=== PATIENT | female | born 1965 | race Caucasian/White ===

== ENCOUNTER → 2018-05-30 | Outpatient (CLI) | payer MEDICARE, MEDICAID ==
--- NOTE | 2018-05-30 13:32 | Diagnostic Imaging Report ---
INDICATION: Evaluate for TB. COMPARISON: No prior studies are available for comparison. TIME OF EXAMINATION: 1:40 PM. FINDINGS: A single view of the chest demonstrates the heart size to be normal. The lungs are clear. There are no parenchymal findings to suggest tuberculosis. The pulmonary vascularity is unremarkable. No effusion or pneumothorax is seen. IMPRESSION: No abnormality is identified. Dictated by: Dictated on workstation # [id number]
[2018-05-31 07:13] LABS: HEPATITIS C ANTIBODY C Non-Reactive (Non-Reactive)
== END ==
LOC: RAD 12:23
PROVIDERS: ATTEND Internal Medicine Nephrology
DX: N18.5 Chronic kidney disease, stage 5 (principal); D64.9 Anemia, unspecified; E20.9 Hypoparathyroidism, unspecified; E83.51 Hypocalcemia; E61.1 Iron deficiency; E55.9 Vitamin D deficiency, unspecified; E87.6 Hypokalemia; R60.0 Localized edema
CPT/HCPCS: 36415; 71045; 80074

== ENCOUNTER 2018-08-28 18:51 | Emergency (ER) | payer MEDICARE, MEDICAID ==
[~2018-08-28] VITALS: Ht 165.1 cm; Wt 123.8 kg
--- NOTE | 2018-08-28 20:04 | ED Integumentary General ---
General Chief Complaint: Skin/Wound Problems Stated Complaint: INFECTION ABOVE EAR ON LT SIDE Source: patient, family (Brother) History of Present Illness Date Seen by Provider: Aug 28, 2018 Time Seen by Provider: 20:04 Initial Comments 53-year-old female presenting with pain, redness and swelling to her left face and ear. This has rapidly progressed over the weekend. She does have a history of MRSA in the past. She hasn't tried taking at the area in the day they come to a head needed to be drained so she tried squeezing on it. She had only gotten blood from this area over the weekend. It has gotten much more red and swollen this evening. She also was having some subjective fever and chills at home. On arrival to the emergency Department her temperature was 100.8 F. she has dialysis on Wednesday was a Wednesday. On Wednesday she had dialysis for the less than 4 hours. She has gotten a large amount of redness and swelling that again has rapidly progressed over the left side of her face and here since Wednesday evening. She denies having any rash in this area but has had dry skin that she picks at sometimes. Timing/Duration: getting worse Severity: moderate Location: face Possible Cause: no cause identified Associated Symptoms: No blisters, No change in skin texture; edema, fever, flushing, malaise; No rash, No sore throat; swelling/mass/lumps Allergies and Home Medications Allergies Coded Allergies: Sulfa (Sulfonamide Antibiotics) (Verified Allergy, Unknown, 08/28/18) vancomycin (Verified Allergy, Unknown, 08/28/18) Patient Home Medication List Home Medication List Reviewed: Yes Review of Systems Review of Systems Constitutional: chills, fever (subjective over the weekend), malaise EENTM: ear pain (left side), other (swelling to her face on the left side) Respiratory: no symptoms reported Cardiovascular: no symptoms reported Gastrointestinal: no symptoms reported Genitourinary: no symptoms reported Musculoskeletal: no symptoms reported Skin: see HPI Past Ftgqmkq-Tcbgbg-Wpslfv Hx Past Med/Social Hx: Reviewed Nursing Past Med/Soc Hx Patient Social History Recent Foreign Travel: No (N) Contact w/Someone Who Travel: No (N) Past Medical History Arteriovenous Shunt, Dialysis Cardiac: No Neurological: No Renal Failure, Dialysis Physical Exam Vital Signs Vital Signs - First Documented 08/28/18 19:18 Temp 100.8 Pulse 92 Resp 18 B/P (MAP) 146/95 (112) Pulse Ox 100 O2 Delivery Room Air Capillary Refill : General Appearance: no apparent distress, obese HEENT: PERRL/EOMI, pharynx normal, other (erythema and swelling to left side of face with pain and tenderness to palpation. No fluctuance or drainage. Scab just above her ear without drainage.) Neck: non-tender, full range of motion, supple, lymphadenopathy (L) Cardiovascular: normal peripheral pulses, regular rate, rhythm, other ( positive thrill and bruit to the right distal forearm where she has an AV shunt for dialysis) Respiratory: chest non-tender, lungs clear, normal breath sounds, no respiratory distress, no accessory muscle use Gastrointestinal: normal bowel sounds, non tender, soft Extremities: normal range of motion, non-tender Neurologic/Psychiatric: alert, oriented x 3 Skin: warm/dry, other (erythema, swelling, pain and tenderness to the left side of her face and ear. There is no fluctuance or drainage.) Skin Problem Location: face (left side preauricular and involving pinna superior portion, erythema and warmth with swelling and tenderness. no fluctuation or drainage. scab just superior and anterior to pinna) Skin Problem Character: erythema, swelling, tenderness, warm Progress/Results/Core Measures Results/Orders Lab Results Laboratory Tests Test 08/28/18 20:45 Range/Units White Blood Count 13.5 H 4.3-11.0 10^3/uL Red Blood Count 3.96 L 4.35-5.85 10^6/uL Hemoglobin 12.4 11.5-16.0 G/DL Hematocrit 38 35-52 % Mean Corpuscular Volume 97 80-99 FL Mean Corpuscular Hemoglobin 31 25-34 PG Mean Corpuscular Hemoglobin Concent 32 32-36 G/DL Red Cell Distribution Width 15.0 H 10.0-14.5 % Platelet Count 194 130-400 10^3/uL Mean Platelet Volume 10.7 H 7.4-10.4 FL Neutrophils (%) (Auto) 62 42-75 % Lymphocytes (%) (Auto) 26 12-44 % Monocytes (%) (Auto) 9 0-12 % Eosinophils (%) (Auto) 3 0-10 % Basophils (%) (Auto) 0 0-10 % Neutrophils # (Auto) 8.4 H 1.8-7.8 X 10^3 Lymphocytes # (Auto) 3.5 1.0-4.0 X 10^3 Monocytes # (Auto) 1.2 H 0.0-1.0 X 10^3 Eosinophils # (Auto) 0.4 H 0.0-0.3 10^3/uL Basophils # (Auto) 0.0 0.0-0.1 10^3/uL Sodium Level 138 135-145 MMOL/L Potassium Level 4.3 3.6-5.0 MMOL/L Chloride Level 97 L 98-107 MMOL/L Carbon Dioxide Level 21 21-32 MMOL/L Anion Gap 20 H 5-14 MMOL/L Blood Urea Nitrogen 44 H 7-18 MG/DL Creatinine 4.99 H 0.60-1.30 MG/DL Estimat Glomerular Filtration Rate 9 BUN/Creatinine Ratio 9 Glucose Level 102 70-105 MG/DL Lactic Acid Level 1.12 0.50-2.00 MMOL/L Calcium Level 10.2 H 8.5-10.1 MG/DL Corrected Calcium 10.5 H 8.5-10.1 MG/DL Magnesium Level 1.8 1.8-2.4 MG/DL Total Bilirubin 1.8 H 0.1-1.0 MG/DL Aspartate Amino Transf (AST/SGOT) 31 5-34 U/L Alanine Aminotransferase (ALT/SGPT) 26 0-55 U/L Alkaline Phosphatase 103 40-136 U/L Total Protein 8.1 6.4-8.2 GM/DL Albumin 3.6 3.2-4.5 GM/DL My Orders Orders - KIMBERLY VITAL MD Cbc With Automated Diff (08/28/18 19:34) Comprehensive Metabolic Panel (08/28/18 19:34) Blood Culture (08/28/18 19:34) Magnesium (08/28/18 19:34) Lactic Acid Analyzer (08/28/18 19:34) Ct Maxillofacial Wo (08/28/18 20:36) Acetaminophen Tablet (Tylenol Tablet) (08/28/18 21:30) Clindamycin 600 Mg/50 Ml Ivpb (Cleocin P (08/29/18 00:45) Medications Given in ED Current Medications Medications Dose Ordered Sig/Richelle Route Start Time Stop Time Status Last Admin Dose Admin Acetaminophen 1,000 mg ONCE ONCE PO 08/28/18 21:30 08/28/18 21:31 DC 08/28/18 22:12 1,000 MG Clindamycin Phosphate/Dextrose 50 ml @ 100 mls/hr ONCE ONCE IV 08/29/18 00:45 08/29/18 01:14 DC 08/29/18 00:41 100 MLS/HR Vital Signs/I&O 08/28/18 08/28/18 08/29/18 19:18 22:12 01:37 Temp 100.8 98.5 98.7 Pulse 92 87 Resp 18 18 B/P (MAP) 146/95 (112) 141/57 (85) Pulse Ox 100 96 O2 Delivery Room Air Progress Progress Note #1: Time: 19:34 Progress Note check labs and blood cultures with lactic acid. Obtain CT scan of face without contrast due to her chronic renal failure Progress Note #2: Time: 22:15 Progress Note labs show elevation of WBC to 13.5 with normal lactic acid. Her Chemistry shows chronic renal failure consistent with needing dialysis in am. CT shows findings for swelling and cellulitis but no abscess formation yet in face and preauricular space. With her history of MRSA infection will check with Nephrology and see if this is something they may want to treat as outpatient in dialysis unit or if they would recommend inpatient care and dialyze there. Progress Note #3: Time: 23:[address] Jose Hinton with Nephrology called back and stated that he does not treat cellulitis and if Dr. Stella Hinton has not seen or treated the patient for this sore then she would need to be started on amoxicillin or antibiotic of my choice and then see Stella in clinic and decide on treatment from there or if I felt the patient needed inpatient treatment have her transferred to the Hospitalist and they will consult Nephrology for dialysis. Progress Note #4: Time: 00:07 Progress Note I spoke with Dr. Desir with Hospitalist service and she accepted the patient in transfer to a [facility] bed. Will start some Clindamycin for antibiotic coverage since patient reports erythema at site of Vancomycin infusion in the past. Cultures are drawn and pending. Progress Note #5: Progress Note Patient remains stable and will be transferred by ambulance to [facility] Diagnostic Imaging Diagonstic Imaging: CT Plain Films/CT/US/NM/MRI: other (maxillofacial) Comments NAME: [facility] REC#: [id number] PT STATUS: REG ER : 1965 PHYSICIAN: KIMBERLY VITAL MD ADMIT DATE: 08/28/18/ER FS Signed Date of Exam:08/28/18 CT MAXILLOFACIAL WO PROCEDURE: CT maxillofacial without contrast. TECHNIQUE: Multiple contiguous axial images were obtained through the facial bones without the use of intravenous contrast. Auto Exposure Controls were utilized during the CT exam to meet ALARA standards for radiation dose reduction. INDICATION: Left yrn-auricle redness, swelling, pain, history of MRSA. FINDINGS: CT scanning of the facial bones demonstrates no fractures. Temporomandibular joints appear normal. No fluid is seen in the paranasal sinuses or mastoid air cells. Subcutaneous edema is seen around the left ear. The external auditory canal, middle ear cavity are patent without fluid. Incidental note is made of calcifications within the brain suggestive of secondary hyperparathyroidism given the patient's history of dialysis. IMPRESSION: 1. There is soft tissue swelling over the left ear and left side of the face. 2. Intracranial calcifications are present probably related to hemodialysis induced secondary hyperparathyroidism. Dictated by: Dictated on workstation # [id number] Dict: 08/28/182142 Trans: 08/28/182202 DHAAR [id number] Interpreted by: RADHA BERMEO MD Electronically signed by: RADHA BERMEO MD 08/28/182202 Reviewed: Reviewed by Me (and reviewed radiology report) Departure Impression Primary Impression: Cellulitis of face Additional Impressions: History of MRSA infection Hemodialysis patient Disposition: SHT-TRM HOSP Condition: Stable Transfer Time Spoke to Accepting Phy: 00:[address] Desir with the hospitalist service accepted the patient in transfer to a [facility] telemetry bed. We will start a dose of clindamycin prior to transfer. Transfer Facility: [facility] Method of Transfer: EMS Departure-Patient Inst. Referrals: ELADIA LEE MD (PCP/Family) Primary Care Physician Images Head/Face 1 - Cellulitis, Tenderness, Other-See Progress Note Progress redness, warmth, tenderness and swelling to left sided of face and preauricular area as well as part of pinna and ear. area of scab just above the pinna where the patient has been picking at the skin and trying to "drain" the swollen area. KIMBERLY VITLA MD Aug 28, 2018 20:04
[2018-08-28 21:01] LABS: HEMATOCRIT 38 % (35-52); HEMOGLOBIN 12.4 G/DL (11.5-16.0); MEAN CORPUSCULAR HEMOGLOBIN 31 PG (25-34); MEAN CORPUSCULAR HGB CONC 32 G/DL (32-36); MEAN CORPUSCULAR VOLUME 97 FL (80-99); WHITE BLOOD COUNT 13.5 10^3/uL (4.3-11.0)
[2018-08-28 21:02] LABS: BASOPHILS % (AUTO) 0 % (0-10); EOSINOPHILS # (AUTO) 0.4 10^3/uL (0.0-0.3); EOSINOPHILS % (AUTO) 3 % (0-10); LYMPHOCYTES # (AUTO) 3.5 X 10^3 (1.0-4.0); LYMPHOCYTES % (AUTO) 26 % (12-44); MEAN PLATELET VOLUME 10.7 FL (7.4-10.4); MONOCYTES # (AUTO) 1.2 X 10^3 (0.0-1.0); MONOCYTES % (AUTO) 9 % (0-12); NEUTROPHILS # (AUTO) 8.4 X 10^3 (1.8-7.8); NEUTROPHILS % (AUTO) 62 % (42-75); PLATELET COUNT 194 10^3/uL (130-400)
[2018-08-28 21:17] LABS: CALCIUM 10.2 MG/DL (8.5-10.1); CREATININE SERUM 4.99 MG/DL (0.60-1.30); POTASSIUM 4.3 MMOL/L (3.6-5.0)
[2018-08-28 21:18] LABS: ALBUMIN 3.6 GM/DL (3.2-4.5); BILIRUBIN,TOTAL 1.8 MG/DL (0.1-1.0); TOTAL PROTEIN 8.1 GM/DL (6.4-8.2)
[2018-08-28] MEDS ORDERED: ACETAMINOPHEN 500 MG TAB (TYLENOL) PO ONE (21:30)
--- NOTE | 2018-08-28 21:50 | Diagnostic Imaging Report ---
PROCEDURE: CT maxillofacial without contrast. TECHNIQUE: Multiple contiguous axial images were obtained through the facial bones without the use of intravenous contrast. Auto Exposure Controls were utilized during the CT exam to meet ALARA standards for radiation dose reduction. INDICATION: Left yrn-auricle redness, swelling, pain, history of MRSA. FINDINGS: CT scanning of the facial bones demonstrates no fractures. Temporomandibular joints appear normal. No fluid is seen in the paranasal sinuses or mastoid air cells. Subcutaneous edema is seen around the left ear. The external auditory canal, middle ear cavity are patent without fluid. Incidental note is made of calcifications within the brain suggestive of secondary hyperparathyroidism given the patient's history of dialysis. IMPRESSION: 1. There is soft tissue swelling over the left ear and left side of the face. 2. Intracranial calcifications are present probably related to hemodialysis induced secondary hyperparathyroidism. Dictated by: Dictated on workstation # [id number]
[2018-08-29] MEDS ORDERED: CLINDAMYCIN 600 MG/50 ML IVPB 50 ML IV ONE (00:45)
[2018-08-29] MEDS ORDERED: CALC0.253 (00:55)
[2018-08-29] MEDS ORDERED: POTA-51 (00:55)
[2018-08-29] MEDS ORDERED: TAMSULOSIN (00:55)
[2018-08-29] MEDS ORDERED: LORA1TAB (00:55)
[2018-08-29] MEDS ORDERED: CETI10TA17 (00:55)
[2018-08-29] MEDS ORDERED: CALC667C10 (00:55)
[2018-08-29] MEDS ORDERED: POTA20TA8 (00:55)
[2018-08-29] MEDS ORDERED: METO2.5T (00:55)
[2018-08-29] MEDS ORDERED: CITA10TA7 (00:55)
[2018-08-29] MEDS ORDERED: TAMS0.4C98 (00:55)
[2018-08-29] MEDS ORDERED: LEVO200T6 (00:55)
[2018-08-29 01:37] VITALS: BP 141/57
== END 2018-08-29 01:37 | disposition short-term general hospital (02) ==
LOC: EDUNIT# 18:51 → ER FS 18:53
DX: L03.211 Cellulitis of face (principal); N18.6 End stage renal disease; Z88.2 Allergy status to sulfonamides; Z88.1 Allergy status to other antibiotic agents; Z86.14 Personal history of Methicillin resistant Staphylococcus aureus infection; Z99.2 Dependence on renal dialysis
CPT/HCPCS: 36415; 70486; 80053; 83605; 83735; 85025; 87040

== ENCOUNTER → 2019-01-19 | Outpatient (CLI) | payer MEDICARE, MEDICAID ==
[~2019-01-19] MED LIST: CALC0.253; CALC667C10; CETI10TA17; CITA10TA7; LEVO200T6; LORA1TAB; METO2.5T; POTA-51; POTA20TA8; TAMS0.4C98; TAMSULOSIN
--- NOTE | 2019-01-19 19:01 | Diagnostic Imaging Report ---
EXAMINATION: Bilateral knees at 2:11 p.m. INDICATION: Knee pain. Three views of both knee joints were obtained. There are no prior studies available for comparison. FINDINGS: There is no fracture, dislocation, or acute bony abnormality evident. The left knee joint is fairly well maintained. There does seem to be narrowing of the lateral compartment of the right knee joint. There are bony excrescences along the anterior aspects of each tibial tuberosity. These may be a sequela of prior trauma. The soft tissues are unremarkable. IMPRESSION: 1. There is no evidence for an acute bony abnormality. 2. There are post-traumatic changes involving both tibial tuberosities. There is also narrowing of the lateral compartment of the right knee joint. Dictated by: Dictated on workstation # [id number]
== END ==
LOC: RAD FS 13:58
PROVIDERS: ATTEND Nurse Practitioner
DX: M25.562 Pain in left knee (principal); M25.561 Pain in right knee; M25.861 Other specified joint disorders, right knee

== ENCOUNTER 2019-10-28 04:39 | Emergency (ER) | payer MEDICARE, MEDICAID ==
[~2019-10-28] VITALS: Ht 165 cm; Wt 115.0 kg
[~2019-10-28 04:39] MED LIST changes: -TAMS0.4C98; +TMSL.4C
--- OUTSIDE RECORDS SUMMARY | 2019-10-28 04:48 | XMS REPORT | Continuity of Care Document ---
Author Organization Unknown Address Unknown Phone Unavailable Allergies Active Description Code Type Severity Reaction Onset Reported/Identified Relationship to Patient Clinical Status Yes Sulfa (Sulfonamide Antibiotics) [id number] Drug Allergy Unknown N/A 019 Yes vancomycin [id number] Drug Allerg y Unknown N/A 08/28/2018 Medications There is no data. Problems Date Dx Coded Attending Type Code Diagnosis Diagnosed By 06/27/2018 JAMES MASSEY, MADELYN Sanderson Ot D64.9 ANEMIA, UNSPECIFIED 06/27/2018 JAMES MASSEY, MADELYN Sanderson Ot E20.9 HYPOPARATHYROIDISM, UNSPECIFIED 06/27/2018 MADELYN RAMIREZ MD S Ot E55.9 VITAMIN D DEFICIENCY, UNSPECIFIED 06/27/2018 JAMES MASSEY, MADELYN S Ot E61.1 IRON DEFICIENCY 06/27/2018 MADELYN RAMIREZ MD S Ot E83.51 HYPOCALCEMIA 06/27/2018 JAMES MASSEY, MADELYN S Ot E87.6 HYPOKALEMIA 06/27/2018 JAMES MASSEY, MADELYN S Ot N18.5 CHRONIC KIDNEY DISEASE, STAGE 5 06/27/2018 MADELYN RAMIREZ MD S Ot R60.0 LOCALIZED EDEMA 07/07/2018 MADELYN RAMIREZ MD S Ot D64.9 ANEMIA, UNSPECIFIED 07/07/2018 JAMES MASSEY, MADELYN S Ot E20.9 HYPOPARATHYROIDISM, UNSPECIFIED 07/07/2018 JAMES MASSEY, MADELYN S Ot E55.9 VITAMIN D DEFICIENCY, UNSPECIFIED 07/07/2018 MADELYN RAMIREZ MD S Ot E61.1 IRON DEFICIENCY 07/07/2018 MADELYN RAMIREZ MD S Ot E83.51 HYPOCALCEMIA 07/07/2018 MADELYN RAMIREZ MD S Ot E87.6 HYPOKALEMIA 07/07/2018 JAMES MASSEY, MADELYN S Ot N18.5 CHRONIC KIDNEY DISEASE, STAGE 5 07/07/2018 JAMES MASSEY, MADELYN S Ot R60.0 LOCALIZED EDEMA 08/28/2018 JAMES MASSEY, MADELYN S Ot D64.9 ANEMIA, UNSPECIFIED 08/28/2018 JAMES MASSEY, MADELYN S Ot E20.9 HYPOPARATHYROIDISM, UNSPECIFIED 08/28/2018 JAMES MASSEY, MADELYN S Ot E55.9 VITAMIN D DEFICIENCY, UNSPECIFIED 08/28/2018 JAMES MASSEY, MADELYN S Ot E61.1 IRON DEFICIENCY 08/28/2018 JAMES MASSEY, MADELYN S Ot E83.51 HYPOCALCEMIA 08/28/2018 JAMES MASSEY, MADELYN S Ot E87.6 HYPOKALEMIA 08/28/2018 JAMES MASSEY, MADELYN S Ot N18.5 CHRONIC KIDNEY DISEASE, STAGE 5 08/28/2018 JAMES MASSEY, MADELYN S Ot R60.0 LOCALIZED EDEMA 08/29/2018 KIMBERLY VITAL MD Ot L03.2 11 CELLULITIS OF FACE 08/29/2018 KIMBERLY VITAL MD, Ot N18.6 END STAGE RENAL DISEASE 08/29/2018 KIMBERLY VITAL MD, Ot R22.0 LOCALIZED SWELLING, MASS AND LUMP, HEAD 08/29/2018 KIMBERLY VITAL MD, Ot Z86.1 4 PERSONAL HISTORY OF METHICILLIN RESIS ST 08/29/2018 KIMBERLY VITAL MD Ot Z88.1 ALLERGY STATUS TO OTHER ANTIBIOTIC AGENT 08/29/2018 KIMBERLY VITAL MD Ot Z88.2 ALLERGY STATUS TO SULFONAMIDES STATUS 08/29/2018 KIMBERLY VITLA MD Ot Z99.2 DEPENDENCE ON RENAL DIALYSIS 08/31/2018 KIMBERLY VITAL MD, Ot L03.2 11 CELLULITIS OF FACE 08/31/2018 KIMBERLY VITAL MD, Ot N18.6 END STAGE RENAL DISEASE 08/31/2018 KIMBERLY VITAL MD, Ot R22.0 LOCALIZED SWELLING, MASS AND LUMP, HEAD 08/31/2018 KIMBERLY VITAL MD, Ot Z86.1 4 PERSONAL HISTORY OF METHICILLIN RESIS ST 08/31/2018 KIMBERLY VITAL MD, Ot Z88.1 ALLERGY STATUS TO OTHER ANTIBIOTIC AGENT 08/31/2018 KIMBERLY VITAL MD, Ot Z88.2 ALLERGY STATUS TO SULFONAMIDES STATUS 08/31/2018 KIMBERLY VITAL MD, Ot Z99.2 DEPENDENCE ON RENAL DIALYSIS 02/16/2019 FRANCISCA KUMARI Ot M25.561 PAIN IN RIGHT KNEE 02/16/2019 FRANCISCA UKMARI Ot M25.562 PAIN IN LEFT KNEE 02/16/2019 FRANCISCA KUMARI Ot M25.861 OTHER SPECIFIED JOINT DISORDERS, RIGHT K Procedures There is no data. Results Test Result Range Acute hepatitis panel - 05/30/18 12:50 Confirmatory quantitative serum or plasm a hepatitis B virus surface antigen measurement Non-Reactive Non-Reactive Hepatitis A virus IgM antibody assay Non-Reactive Non- Reactive Hepatitis B virus core IgM antibody assay Non-Reac tive Non- Reactive Serum hepatitis C virus antibody detection Non-Annie ctive Non-Reactive Complete blood count (CBC) with automate d white blood cell (WBC) differential - 08/28/18 20:45 Blood leukocytes automated count (number/volume) 13.5 10*3/uL 4.3-11.0 Blood erythrocytes automated count (number/volume) 3.96 10*6/uL 4.35-5.85 Venous blood hemoglobin measurement (mass/volume) 12.4 g/dL 11.5-16.0 Blood hematocrit (volume fraction) 38 % 35-52 Automated erythrocyte mean corpuscular volume 97 [ foz_us] 80-99 Automated erythrocyte mean corpuscular h emoglobin (mass per erythrocyte) 31 pg 25-34 Automated erythrocyte mean corpuscular h emoglobin concentration measurement (mass/volume) 32 g/dL 32-36 Automated erythrocyte distribution width ratio 15. 0 % 10.0- 14.5 Automated blood platelet count (count/volume) 194 10*3/uL 130-400 Automated blood platelet mean volume measurement 10.7 [foz_us] 7.4-10.4 Automated blood neutrophils/100 leukocytes 62 % 42-75 Automated blood lymphocytes/100 leukocytes 26 % 12-44 Blood monocytes/100 leukocytes 9 % 0-12 Automated blood eosinophils/100 leukocytes 3 % 0-10 Automated blood basophils/100 leukocytes 0 % 0-10 Blood neutrophils automated count (number/volume) 8.4 10*3 1.8-7.8 Blood lymphocytes automated count (number/volume) 3.5 10*3 1.0-4.0 Blood monocytes automated count (number/volume) 1. 2 10*3 0.0-1.0 Automated eosinophil count 0.4 10*3/uL 0 .0-0.3 Automated blood basophil count (count/volume) 0.0 10*3/uL 0.0-0.1 Blood lactic acid measurement (moles/vol ume) - 08/28/18 20:45 Blood lactic acid measurement (moles/volume) 1.12 mmol/L 0.50-2.00 Comprehensive metabolic panel - 08/28/18 20:45 Serum or plasma sodium measurement (moles/volume) 138 mmol/L 135-145 Serum or plasma potassium measurement (moles/volume) 4.3 mmol/L 3.6-5.0 Serum or plasma chloride measurement (moles/volume) 97 mmol/L 98-107 Carbon dioxide 21 mmol/L 21-32 Serum or plasma anion gap determination (moles/volume) 20 mmol/L 5-14 Serum or plasma urea nitrogen measurement (mass/volume ) 44 mg/dL 7-18 Serum or plasma creatinine measurement (mass/volume) 4.99 mg/dL 0.60-1.30 Serum or plasma urea nitrogen/creatinine mass ratio 9 NRG Serum or plasma creatinine measurement w ith calculation of estimated glomerular filtration rate 9 NRG Serum or plasma glucose measurement (mass/volume) 102 mg/dL 70-105 Serum or plasma calcium measurement (mass/volume) 10.2 mg/dL 8.5-10.1 Serum or plasma total bilirubin measurement (mass/volu me) 1.8 mg/dL 0.1-1.0 Serum or plasma alkaline phosphatase richie surement (enzymatic activity/volume) 103 U/L 40-136 Serum or plasma aspartate aminotransfera se measurement (enzymatic activity/volume) 31 U/L 5-34 Serum or plasma alanine aminotransferase measurement (enzymatic activity/volume) 26 U/L 0-55 Serum or plasma protein measurement (mass/volume) 8.1 g/dL 6.4-8.2 Serum or plasma albumin measurement (mass/volume) 3.6 g/dL 3.2-4.5 CALCIUM CORRECTED 10.5 mg/dL 8.5-10.1 Magnesium - 08/28/18 20:45 Magnesium 1.8 mg/dL 1.8-2.4 Bacterial blood culture - 08/28/18 20:45 Bacterial blood culture NG NRG Bacterial blood culture - 08/28/18 21:38 Bacterial blood culture NG NRG CULTURE, STOOL - 09/13/18 15:33 SALMONELLA AND SHIGELLA, CULTURE SEE NOTE NRG STOOL (C-DIFF) - 09/13/18 15:33 CLOSTRIDIUM DIFFICILE TOXIN/GDH W/REFL TO PCR SEE NOTE NRG TSH - 01/05/19 14:07 TSH 7.48 mIU/L NRG CULTURE, URINE - 02/02/19 02:59 CULTURE, URINE, ROUTINE SEE NOTE NRG SUREPATH PAP - 07/03/19 15:55 CLINICAL INFORMATION: NRG LMP: NRG PREV. PAP: NRG PREV. BX: NRG SOURCE: Vagina NRG STATEMENT OF ADEQUACY: NRG INTERPRETATION/RESULT: NRG SUPERVISOR PAINT DEPARTMENT: NRG COMMENT NRG CULTURE, URINE - 10/11/19 12:08 CULTURE, URINE, ROUTINE SEE NOTE NRG Encounters ACCT No. Visit Date/Time Discharge Status Pt. Type Provider Facility Loc./Unit Complaint [id number] 06/19/2019 11:30:00 06/19/2019 23:59:5 9 CLS Outpatient BECCA LEERandi Rodriguez [facility] [id number] 10/11/2019 12:00:00 Document Registration [id number] 07/03/2019 15:00:00 Document Registration [id number] 02/01/2019 14:20:00 Document Registration [id number] 01/05/2019 13:30:00 Document Registration [id number] 09/13/2018 14:45:00 Document Registration [id number] 01/19/2019 13:58:00 23:59:59 CLS Outpatient FRANCISCA KUMARI [facility] RAD FS M25.561 [id number] 08/28/2018 18:53:00 01:37:00 DIS Emergency ZAHRAA MASSEY, KIMBERLY Lopez [facility] ER FS INFECTION ABOVE EAR ON LT SIDE [id number] 05/30/2018 12:23:00 23:59:59 CLS Outpatient JAMES MASSEY, MADELYN Sanderson [facility] RAD N18.9
--- NOTE | 2019-10-28 05:02 | ED Back Pain ---
General Chief Complaint: Back Problems History of Present Illness Date Seen by Provider: Oct 28, 2019 Time Seen by Provider: 04:51 Initial Comments Pain in RIGHT side Began 4 days ago after coughing hard. CRF on dialysis (//Wed).....only has her right kidney (left nephrectomy). NON- diabetic Denies dysuria, hematuria or hx of UTI's Allergies and Home Medications Allergies Coded Allergies: Sulfa (Sulfonamide Antibiotics) (Verified Allergy, Unknown, 08/28/18) vancomycin (Verified Allergy, Unknown, 08/28/18) Home Medications Hydrocodone/Acetaminophen 1 Each Tablet, 1 EACH PO Q4H Prescribed by: BEL DHALIWAL on 10/28/19 0512 Patient Home Medication List Home Medication List Reviewed: Yes Review of Systems Constitutional: see HPI; No chills, No fever, No malaise, No weakness Respiratory: No cough, No short of breath Cardiovascular: No chest pain, No edema, No palpitations, No syncope Gastrointestinal: No abdominal pain, No loss of appetite, No nausea, No vomiting Genitourinary: see HPI; No discharge, No dysuria, No frequency, No hematuria, No hesitancy, No incontinence, No nocturia; pain (R flank and ribs) Musculoskeletal: see HPI Skin: No change in color, No lesions, No lumps, No rash Psychiatric/Neurological: Denies Headache, Denies Numbness, Denies Paresthesia Past Bolzlcf-Yysnki-Pfhfep Hx Past Med/Social Hx: Reviewed Nursing Past Med/Soc Hx Patient Social History 2nd Hand Smoke Exposure: No Recent Foreign Travel: No Contact w/Someone Who Travel: No Recent Hopitalizations: No Seasonal Allergies Seasonal Allergies: No Past Medical History Arteriovenous Shunt, Dialysis Respiratory: No Cardiac: No Neurological: No Seizure Disorder Genitourinary: Yes Renal Failure, Dialysis Gastrointestinal: No Musculoskeletal: No Endocrine: No HEENT: Yes Hearing Impairment: Bilateral Hearing Aide Cancer: No Psychosocial: No Integumentary: Yes Psoriasis Blood Disorders: No Physical Exam Vital Signs Vital Signs - First Documented 10/28/19 05:30 Temp 36.6 Pulse 87 Resp 14 B/P (MAP) 105/67 (80) Pulse Ox 98 O2 Delivery Room Air Capillary Refill : Height, Weight, BMI Height: 5'5.00" Weight: 273lbs. oz. 123.539696nb; BMI Method:Stated General Appearance: No Apparent Distress, WD/WN Cardiovascular: Regular Rate, Rhythm, No Edema Respiratory: Chest Non Tender, Lungs Clear, No Accessory Muscle Use, No Respiratory Distress Gastrointestinal: Non Tender, Soft Back: Normal Inspection, No CVA Tenderness, No Vertebral Tenderness, Other (mild tenderness R flank and R lateral rib margin soft tissue) Neurologic/Psychiatric: Alert, Oriented x3, Normal Mood/Affect Skin: Normal Color, Warm/Dry Progress/Results/Core Measures Results/Orders Lab Results Laboratory Tests Test 10/28/19 05:39 Range/Units Urine Color YELLOW Urine Clarity CLOUDY Urine pH 6.0 5-9 Urine Specific [place] 1.015 L 1.016-1.022 Urine Protein 3+ H NEGATIVE Urine Glucose (UA) NEGATIVE NEGATIVE Urine Ketones NEGATIVE NEGATIVE Urine Nitrite NEGATIVE NEGATIVE Urine Bilirubin NEGATIVE NEGATIVE Urine Urobilinogen 0.2 < = 1.0 MG/DL Urine Leukocyte Esterase 3+ H NEGATIVE Urine RBC (Auto) 3+ H NEGATIVE Urine RBC /HPF Urine WBC TNTC H /HPF Urine Crystals NONE /LPF Urine Bacteria /HPF Urine Casts NONE /LPF Urine Mucus NEGATIVE /LPF Urine Culture Indicated YES My Orders Orders - BEL DHALIWAL DO Urinalysis (10/28/19 04:48) Urine Culture (10/28/19 05:39) Vital Signs/I&O 10/28/19 05:30 Temp 36.6 Pulse 87 Resp 14 B/P (MAP) 105/67 (80) Pulse Ox 98 O2 Delivery Room Air Departure Impression Primary Impression: UTI (urinary tract infection) Qualified Codes: N39.0 - Urinary tract infection, site not specified; R31.9 - Hematuria, unspecified Additional Impression: Rib pain on right side Disposition: HOME, SELF-CARE Condition: Stable Departure-Patient Inst. Decision time for Depature: 05:12 Referrals: ELADIA LEE MD (PCP/Family) Primary Care Physician Patient Instructions: Muscle Strain (DC), Urinary Tract Infections in Adults Add. Discharge Instructions: Keep your appointment for dialysis scheduled this morning. See your PCP next week to recheck your urine. Call your doctor or go to the nearest ER if you feel like you are getting worse. All discharge instructions reviewed with patient and/or family. Voiced understanding. Scripts Cephalexin (Cephalexin) 500 Mg Tablet 500 MG PO TID, #21 TAB 0 Refills Prov: BEL DHALIWAL DO 10/28/19 Hydrocodone/Acetaminophen (Hydrocodone-Acetamin 5-325 mg) 1 Each Tablet 1 EACH PO Q4H for Abdominal Pain, #20 TAB Prov: BEL DHALIWAL DO 10/28/19 BEL DHALIWAL DO Oct 28, 2019 05:02
[2019-10-28] MEDS ORDERED: HYDR-83 PO (05:12)
[2019-10-28 05:49] LABS: CLARITY,URINE CLOUDY; COLOR,URINE YELLOW
[2019-10-28 05:50] LABS: BILIRUBIN,URINE NEGATIVE (NEGATIVE); GLUCOSE, URINE (UA) NEGATIVE (NEGATIVE); KETONES,URINE NEGATIVE (NEGATIVE); LEUKOCYTE ESTERASE ,URINE 3+ (NEGATIVE); NITRITE,URINE NEGATIVE (NEGATIVE); PROTEIN,URINE 3+ (NEGATIVE); WBC,URINE TNTC /HPF
[2019-10-28] MEDS ORDERED: CEPH500T PO (05:56)
[2019-10-28 05:58] VITALS: BP 102/72
== END 2019-10-28 06:02 | disposition home or self-care (01) ==
LOC: EDUNIT# 04:39 → ER FS 04:44
DX: R07.81 Pleurodynia (principal); N39.0 Urinary tract infection, site not specified; Z90.5 Acquired absence of kidney; Z88.2 Allergy status to sulfonamides; Z88.1 Allergy status to other antibiotic agents
CPT/HCPCS: 81000; 87088; 99281

== ENCOUNTER 2020-07-05 10:55 | Emergency (ER) | payer MEDICARE, MEDICAID ==
[~2020-07-05] VITALS: Ht 165 cm; Wt 114.0 kg
[~2020-07-05 10:55] MED LIST changes: +ACHD5005 PO; +CEPH500T PO
[2020-07-05] MEDS ORDERED: NS IV 500 ML 500 ML IV ONE (11:15)
--- NOTE | 2020-07-05 11:15 | ED General ---
General Chief Complaint: Cardiac/General Problems Stated Complaint: HYPOTENSION Source of Information: Patient, EMS Exam Limitations: No Limitations (RAMO GUTIERREZ) History of Present Illness Date Seen by Provider: Jul 05, 2020 Time Seen by Provider: 10:57 Initial Comments Patient presents ER by EMS from dialysis center with chief complaint that when she reported to dialysis this morning they noticed her blood pressure was low around 90/60 so they gave her a small unknown aliquot of fluids. This brought her pressure up and it was 105 systolic for EMS when they arrived. She has complained of a sore throat for about a week and saw her provider who tested her positive for strep and gave her a dose of penicillin IM. Patient says her sore throat has persisted and it makes it very hard to drink fluids. She feels very dehydrated. She has not had any diarrhea nausea vomiting shortness of breath cough fever or chills. She does not have a history of tonsillectomy. 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 Has had multiple surgeries on her kidneys however. (RAMO GUTIERREZ) Allergies and Home Medications Allergies Coded Allergies: Sulfa (Sulfonamide Antibiotics) (Verified Allergy, Unknown, 08/28/18) vancomycin (Verified Allergy, Unknown, 08/28/18) Home Medications Cephalexin 500 Mg Tablet, 500 MG PO TID Prescribed by: BEL DHALIWAL on 10/28/19 0556 Hydrocodone/Acetaminophen 1 Each Tablet, 1 EACH PO Q4H Prescribed by: BEL DHALIWAL on 10/28/19 0512 Patient Home Medication List Home Medication List Reviewed: Yes (RAMO GUTIERREZ) Review of Systems Review of Systems Constitutional: No chills, No fever; malaise EENTM: throat pain (Sore throat difficulty swallowing); No ear discharge, No ear pain, No nose congestion Respiratory: No cough, No short of breath Cardiovascular: No chest pain, No edema, No syncope Gastrointestinal: No abdominal pain, No nausea Genitourinary: No discharge, No dysuria Musculoskeletal: No back pain, No joint pain (RAMO GUTIERREZ) All Other Systems Reviewed Negative Unless Noted: Yes (RAMO GUTIERREZ) Past Vdsnzmx-Pmakhn-Mdplxl Hx Patient Social History Alcohol Use: Denies Use Smoking Status: Never a Smoker 2nd Hand Smoke Exposure: No Recent Hopitalizations: No (RAMO GUTIERREZ) Seasonal Allergies Seasonal Allergies: No (RAMO GUTIERREZ) Past Medical History Arteriovenous Shunt, Dialysis Respiratory: No Cardiac: No Neurological: No Seizure Disorder Genitourinary: Yes Renal Failure, Dialysis Gastrointestinal: No Musculoskeletal: No Endocrine: No HEENT: Yes Hearing Impairment: Bilateral Hearing Aide Cancer: No Psychosocial: No Integumentary: Yes Psoriasis Blood Disorders: No (RAMO GUTIERREZ) Physical Exam Vital Signs Vital Signs - First Documented 07/05/20 10:55 Temp 35.3 Pulse 93 Resp 20 B/P (MAP) 105/60 (75) Pulse Ox 100 O2 Delivery Room Air (TONO FRANCISCO APRN) Vital Signs Capillary Refill : (RAMO GUTIERREZ) Height, Weight, BMI Height: 5'5.00" Weight: 273lbs. oz. 123.732861mo; 42.00 BMI Method:Stated General Appearance: Chronically ill, Moderate Distress, Obese Eyes: Bilateral Eye Normal Inspection, Bilateral Eye PERRL, Bilateral Eye EOMI HEENT: PERRL/EOMI, TMs Normal, Normal ENT Inspection; No Pharynx Normal; Moist Mucous Membranes (Dry oropharynx with some white plaques under the tongue as well as a retropharyngeal erythema injected swollen, edematous tissue with white plaques) Neck: Full Range of Motion, Normal Inspection Respiratory: Lungs Clear, Normal Breath Sounds, No Accessory Muscle Use, No Respiratory Distress Cardiovascular: Regular Rate, Rhythm, Normal Peripheral Pulses Extremity: Normal Capillary Refill, Normal Inspection Neurologic/Psychiatric: Alert, Oriented x3, No Motor/Sensory Deficits Skin: Normal Color, Warm/Dry (RAMO GUTIERREZ) Focused Exam Sepsis Stage: Septic Shock Possible Source: Unknown (RAMO GUTIERREZ) Time of Focused Exam: 15:13 Respiratory: Lungs Clear, Normal Breath Sounds, No Accessory Muscle Use, No Respiratory Distress Cardiovascular: Regular Rate, Rhythm, Normal Peripheral Pulses Capillary Refill: Greater Than 3 Seconds Peripheral Pulses: 2+ Radial Pulses (R), 2+ Radial Pulses (L) Skin: warm/dry, jaundice (RAMO GUTIERREZ) Within 3hrs of presentation: Admin fluids, Admin 30ml/kg IBW due to BMI>30, Admin ABX, Blood cultures prior to ABX's, Focus exam, Lactate level, Vasopressin therapy (Levophed) (RAMO GUTIERREZ) Procedures/Interventions Lumen: triple Position: internal jugular (R) Anesthesia: Lidocaine Volume Anesthetic (ccs): 3 Complications: none Post Position: sutured, good blood return, position confirmed w/ CXR (TONO FRANCISCO APRN) Progress/Results/Core Measures Suspected Sepsis SIRS Temperature: Pulse: Respiratory Rate: Laboratory Tests 07/05/20 11:19: White Blood Count 2.1L Blood Pressure / Mean: Laboratory Tests 07/05/20 11:19: Creatinine 3.30H, INR Comment 1.0, Platelet Count 64L, Total Bilirubin 3.2H (RAMO GUTIERREZ) Results/Orders Lab Results Laboratory Tests Test 07/05/20 11:19 Range/Units White Blood Count 2.1 L 4.3-11.0 10^3/uL Red Blood Count 2.65 L 3.80-5.11 10^6/uL Hemoglobin 8.6 L 11.5-16.0 g/dL Hematocrit 25 L 35-52 % Mean Corpuscular Volume 94 80-99 fL Mean Corpuscular Hemoglobin 33 25-34 pg Mean Corpuscular Hemoglobin Concent 34 32-36 g/dL Red Cell Distribution Width 14.3 10.0-14.5 % Platelet Count 64 L 130-400 10^3/uL Mean Platelet Volume 9.6 9.0-12.2 fL Immature Granulocyte % (Auto) 1 % Neutrophils (%) (Auto) 57 42-75 % Lymphocytes (%) (Auto) 38 12-44 % Monocytes (%) (Auto) 2 0-12 % Eosinophils (%) (Auto) 3 0-10 % Basophils (%) (Auto) 0 0-10 % Neutrophils # (Auto) 1.2 L 1.8-7.8 10^3/uL Lymphocytes # (Auto) 0.8 L 1.0-4.0 10^3/uL Monocytes # (Auto) 0.0 0.0-1.0 10^3/uL Eosinophils # (Auto) 0.1 0.0-0.3 10^3/uL Basophils # (Auto) 0.0 0.0-0.1 10^3/uL Immature Granulocyte # (Auto) 0.0 0.0-0.1 10^3/uL Prothrombin Time 13.4 12.2-14.7 SEC INR Comment 1.0 0.8-1.4 Activated Partial Thromboplast Time 32 24-35 SEC Sodium Level 139 135-145 MMOL/L Potassium Level 2.8 L 3.6-5.0 MMOL/L Chloride Level 93 L 98-107 MMOL/L Carbon Dioxide Level 30 21-32 MMOL/L Anion Gap 16 H 5-14 MMOL/L Blood Urea Nitrogen 18 7-18 MG/DL Creatinine 3.30 H 0.60-1.30 MG/DL Estimat Glomerular Filtration Rate 15 BUN/Creatinine Ratio 5 Glucose Level 86 70-105 MG/DL Calcium Level 7.9 L 8.5-10.1 MG/DL Corrected Calcium 8.3 L 8.5-10.1 MG/DL Magnesium Level 1.9 1.6-2.4 MG/DL Total Bilirubin 3.2 H 0.1-1.0 MG/DL Aspartate Amino Transf (AST/SGOT) 47 H 5-34 U/L Alanine Aminotransferase (ALT/SGPT) 44 0-55 U/L Alkaline Phosphatase 66 40-136 U/L Troponin I < 0.028 <0.028 NG/ML C-Reactive Protein High Sensitivity 15.94 H 0.00-0.50 MG/DL Total Protein 7.9 6.4-8.2 GM/DL Albumin 3.5 3.2-4.5 GM/DL (TONO FRANCISCO APRN) Medications Given in ED Current Medications Medications Dose Ordered Sig/Richelle Route Start Time Stop Time Status Last Admin Dose Admin Cefepime HCl 1000 mg/Sterile Water 10 ml @ 200 mls/hr ONCE ONCE IV 07/05/20 12:00 07/05/20 12:02 DC 07/05/20 12:23 200 MLS/HR Potassium Chloride 50 ml @ 50 mls/hr Q1H ONCE IV 07/05/20 12:00 07/05/20 12:59 07/05/20 12:24 50 MLS/HR Sodium Chloride 500 ml @ 0 mls/hr Q0M ONCE IV 07/05/20 11:15 07/05/20 11:16 DC 07/05/20 12:04 499 MLS/HR (TONO FRANCISCO APRN) Vital Signs/I&O 07/05/20 10:55 Temp 35.3 Pulse 93 Resp 20 B/P (MAP) 105/60 (75) Pulse Ox 100 O2 Delivery Room Air (FRANCISCOTONO ESPINOSA Randi DELGADO) Vital Signs/I&O Capillary Refill : (RAMO GUTIERREZ) Progress Note #1: Time: 11:14 Progress Note To give the patient a liter of fluids as she does appear to be clinically dry and this may explain her hypotension. She would be dry most likely from decreased fluid intake related to sore throat. She has some white plaques under her tongue and in her retropharynx as well as significant erythema and moderate swelling/soft tissue edema consistent with a tonsillopharyngitis possible yeast. We will check some labs and put her on oral nystatin. Progress Note #2: Time: 11:48 Progress Note Shortly after the patient's arrival her blood pressure dipped down again to 80 systolic. A total of 1500 cc was ordered. Suspect patient is dehydrated related to her recent strep throat. She has evidence of vulval candidiasis as well as pharyngeal candidiasis. Before the fluids could be administered very much her blood pressure continued to dip to 50/40 and Trendelenburg was initiated. Levophed drip at 0.1 mcg/kg/min was initiated. A central line was initiated as she had very poor peripheral vascular access and only 22-gauge in her left wrist was available. We will obtain blood cultures, lactate do a full septic work-up and initiate transfer. After liter of fluids was in through her central line her blood pressure has recovered and is presently 121/84. Heart rate is 80. We have not initiated the Levophed yet. Central line was indicated and placed. Progress Note #3: Time: 12:15 Progress Note Patient blood pressure takes again as her putting her Bacon catheter in down to 60 systolic so we reinitiated Levophed at 0.2 mcg/kg/min after putting her in Trendelenburg and her blood pressure came up to 90 systolic. (RAMO GUTIERREZ) ECG Initial ECG Impression Date: Jul 05, 2020 Initial ECG Impression Time: 12:04 Initial ECG Rate: 78 Initial ECG Rhythm: Normal Sinus Initial ECG Intervals: QT (484) Initial ECG Impression: Normal Comment Normal sinus rhythm without clinically relevant ST changes. Atrial fibrillation as indicated on the EKG automatic read and as not consistent with the printed findings. (RAMO GUTIERREZ) Diagnostic Imaging Diagonstic Imaging: Xray Plain Films/CT/US/NM/MRI: chest Comments No evidence of pneumonia or pneumothorax. Right internal jugular line terminating in the superior vena cava at the level of the right atria. No evidence of crossing midline. [facility] [place] NAME: GILBERTO SWENSON [facility] REC#: [id number] PT STATUS: REG ER : 1965 PHYSICIAN: RAMO GUTIERREZ MD ADMIT DATE: 07/05/20/ER Signed Date of Exam:07/05/20 CHEST 1 VIEW, AP/PA ONLY CHEST 1 VIEW, AP/PA ONLY Indication: Sepsis, central line placement Comparison: 05/30/2018 Findings: Right IJ central venous catheter has tip terminating in the mid to lower SVC. No pneumothorax or pleural effusion. Hazy opacities in lung bases are most likely due to summation shadow of patient's breast tissue. No dense consolidation. Posterior lower lobes are poorly evaluated by portable radiography. Impression: 1. Well-positioned right IJ central venous catheter. 2. No pneumothorax. Dictated by: Dictated on workstation # [id number] Dict: 07/05/20 1200 Trans: 07/05/20 1304 CVB [id number] Interpreted by: NIKITA EDUARDO MD Electronically signed by: NIKITA EDUARDO MD 07/05/20 1304 Reviewed: Reviewed by Me (RAMO GUTIERREZ) Critical Care Note Critical Care Start Time: 11:00 Stop Time: 14:00 Total Time (minutes) I attest 280 minutes of critical care time outside of procedures. Managing the patient's blood pressure, coordinating care with her family and diagnosis as well as coordinating successful transfer to [facility]. (RAMO GUTIERREZ) Departure Impression Primary Impression: Septic shock Additional Impression: Oropharyngeal candidiasis Disposition: XFER SHT-TRM HOSP Condition: Critical Transfer Transfer Reason: Exceeds level of care (No inpatient dialysis) Time Spoke to Accepting Phy: 13:30 Transfer Progress Notes 1155: Discussed the case with [facility] and they do not have any bed availability at [place] but they do in [place]. Gave report and they will discuss the case and call us back. Transfer Time: 14:30 Transfer Facility: Emergency room at [place], [place]. Spoke to Dr. Valdes in the ER and he accepts the patient directly. Critical care doctor feels the patient is too unstable to go directly to the ICU. Method of Transfer: EMS (RAMO GUTIERREZ) Departure-Patient Inst. Referrals: ELADIA LEE MD (PCP/Family) Primary Care Physician RAMO GUTIERREZ Jul 05, 2020 11:15 TONO FRANCISCO APRN Jul 05, 2020 12:38
[2020-07-05 11:31] LABS: BASOPHILS % (AUTO) 0 % (0-10); EOSINOPHILS # (AUTO) 0.1 10^3/uL (0.0-0.3); EOSINOPHILS % (AUTO) 3 % (0-10); HEMATOCRIT 25 % (35-52); HEMOGLOBIN 8.6 g/dL (11.5-16.0); LYMPHOCYTES # (AUTO) 0.8 10^3/uL (1.0-4.0); LYMPHOCYTES % (AUTO) 38 % (12-44); MEAN CORPUSCULAR HEMOGLOBIN 33 pg (25-34); MEAN CORPUSCULAR HGB CONC 34 g/dL (32-36); MEAN CORPUSCULAR VOLUME 94 fL (80-99); MEAN PLATELET VOLUME 9.6 fL (9.0-12.2); MONOCYTES % (AUTO) 2 % (0-12); NEUTROPHILS # (AUTO) 1.2 10^3/uL (1.8-7.8); NEUTROPHILS % (AUTO) 57 % (42-75); PLATELET COUNT 64 10^3/uL (130-400); WHITE BLOOD COUNT 2.1 10^3/uL (4.3-11.0)
[2020-07-05] MEDS ORDERED: NOREPINEPHRINE 4 MG/250 ML 250 ML IV ONE (11:33)
[2020-07-05 11:38] LABS: ALBUMIN 3.5 GM/DL (3.2-4.5); POTASSIUM 2.8 MMOL/L (3.6-5.0)
[2020-07-05 11:40] LABS: CALCIUM 7.9 MG/DL (8.5-10.1)
[2020-07-05 11:41] LABS: TOTAL PROTEIN 7.9 GM/DL (6.4-8.2)
[2020-07-05 11:43] LABS: BILIRUBIN,TOTAL 3.2 MG/DL (0.1-1.0)
[2020-07-05 11:45] LABS: CREATININE SERUM 3.3 MG/DL (0.60-1.30)
[2020-07-05] MEDS ORDERED: NS IV 1000 ML 1,000 ML IV SCH ×2 (11:45→12:00)
[2020-07-05 11:47] LABS: MAGNESIUM 1.9 MG/DL (1.6-2.4)
[2020-07-05] MEDS ORDERED: VANCOMYCIN INJECTION 2,000 MG in NS IV 500 ML 500 ML IV ONE (11:50)
[2020-07-05] MEDS ORDERED: POTASSIUM CL 10MEQ/50ML IVPB 50 ML IV ONE (12:00)
[2020-07-05] MEDS ORDERED: CEFEPIME INJECTION 1,000 MG in WATER (STERILE) FOR INJECTION 10 ML IV ONE (12:00)
--- NOTE | 2020-07-05 12:04 | Diagnostic Imaging Report ---
CHEST 1 VIEW, AP/PA ONLY Indication: Sepsis, central line placement Comparison: 05/30/2018 Findings: Right IJ central venous catheter has tip terminating in the mid to lower SVC. No pneumothorax or pleural effusion. Hazy opacities in lung bases are most likely due to summation shadow of patient's breast tissue. No dense consolidation. Posterior lower lobes are poorly evaluated by portable radiography. Impression: 1. Well-positioned right IJ central venous catheter. 2. No pneumothorax. Dictated by: Dictated on workstation # [id number]
[2020-07-05 12:05] LABS: PROTHROMBIN TIME PATIENT 13.4 SEC (12.2-14.7)
[2020-07-05] MEDS ORDERED: LACTATED RINGERS 1,000 ML IV ONE (13:00)
[2020-07-05 13:11] VITALS: BP 101/66
[2020-07-05] MEDS ORDERED: NOREPINEPHRINE 4 MG/250 ML 250 ML IV SCH (13:15)
[2020-07-05 15:37] LABS: CLARITY,URINE CLEAR; COLOR,URINE YELLOW; GLUCOSE, URINE (UA) NEGATIVE (NEGATIVE); KETONES,URINE TRACE (NEGATIVE); LEUKOCYTE ESTERASE ,URINE 1+ (NEGATIVE); NITRITE,URINE NEGATIVE (NEGATIVE); PROTEIN,URINE 2+ (NEGATIVE)
[2020-07-05 15:47] LABS: AMORPHOUS SEDIMENT,UR RARE AMOR URATES /LPF; BACTERIA,URINE FEW /HPF; BILIRUBIN,URINE 1+ (NEGATIVE); WBC,URINE 25-50 /HPF
== END 2020-07-05 12:52 ==
LOC: EDUNIT# 10:55 → ER 10:56
DX: A40.9 Streptococcal sepsis, unspecified (principal); B37.9 Candidiasis, unspecified; E66.9 Obesity, unspecified; N19 Unspecified kidney failure; Z88.2 Allergy status to sulfonamides; Z88.1 Allergy status to other antibiotic agents; Z68.41 Body mass index [BMI] 40.0-44.9, adult; Z99.2 Dependence on renal dialysis
CPT/HCPCS: 36415; 36556; 51702; 71045; 80053; 81000; 83735; 84484; 85025; 85610; 85730; 86141; 87040; 87088

== ENCOUNTER → 2020-08-28 | Outpatient (CLI) | payer MEDICARE, MEDICAID ==
[2020-08-28 15:09] LABS: BILIRUBIN,URINE NEGATIVE (NEGATIVE); CLARITY,URINE CLOUDY; COLOR,URINE YELLOW; GLUCOSE, URINE (UA) NEGATIVE (NEGATIVE); KETONES,URINE TRACE (NEGATIVE); NITRITE,URINE NEGATIVE (NEGATIVE); PROTEIN,URINE 1+ (NEGATIVE)
[2020-08-28 15:10] LABS: BACTERIA,URINE MODERATE /HPF; LEUKOCYTE ESTERASE ,URINE NEGATIVE (NEGATIVE); RBC,URINE 0-2 /HPF; SQUAMOUS EPITHELIAL CELL,UR TNTC /HPF
[2020-08-28 15:11] LABS: YEAST,URINE FEW /HPF
== END ==
LOC: IHC 13:47
PROVIDERS: ATTEND Family Medicine
DX: R30.0 Dysuria (principal); R35.0 Frequency of micturition
CPT/HCPCS: 81000; 87088

== ENCOUNTER → 2020-10-15 | Outpatient (CLI) | payer MEDICAID, MEDICARE ==
[2020-10-15 13:56] LABS: CLARITY,URINE CLOUDY; COLOR,URINE YELLOW; GLUCOSE, URINE (UA) NEGATIVE (NEGATIVE); KETONES,URINE TRACE (NEGATIVE); NITRITE,URINE NEGATIVE (NEGATIVE); PROTEIN,URINE 2+ (NEGATIVE)
[2020-10-15 13:57] LABS: BACTERIA,URINE LARGE /HPF; BILIRUBIN,URINE 1+ (NEGATIVE); LEUKOCYTE ESTERASE ,URINE 3+ (NEGATIVE); WBC,URINE 50-100 /HPF
== END ==
LOC: HH 13:15
PROVIDERS: ATTEND Family Medicine
DX: R35.0 Frequency of micturition (principal); Z79.01 Long term (current) use of anticoagulants
CPT/HCPCS: 81000; 87088

== ENCOUNTER → 2020-11-19 | Outpatient (CLI) | payer MEDICAID ==
[2020-11-19 15:20] LABS: CLARITY,URINE CLOUDY; COLOR,URINE YELLOW
[2020-11-19 15:21] LABS: BILIRUBIN,URINE 1+ (NEGATIVE); GLUCOSE, URINE (UA) NEGATIVE (NEGATIVE); KETONES,URINE TRACE (NEGATIVE); NITRITE,URINE NEGATIVE (NEGATIVE); PROTEIN,URINE 2+ (NEGATIVE)
[2020-11-19 15:22] LABS: BACTERIA,URINE FEW /HPF; LEUKOCYTE ESTERASE ,URINE NEGATIVE (NEGATIVE); RBC,URINE RARE /HPF; WBC,URINE 0-2 /HPF
[2020-11-19 15:23] LABS: AMORPHOUS SEDIMENT,UR FEW AMOR URATES /LPF
[2020-11-19 15:24] LABS: HYALINE CASTS, URINE RARE /LPF
== END ==
LOC: IHC 14:46
PROVIDERS: ATTEND Family Medicine
DX: N18.6 End stage renal disease (principal)
CPT/HCPCS: 81000; 87088

== ENCOUNTER 2021-05-26 14:22 | Emergency (ER) | payer MEDICARE, MEDICAID ==
[~2021-05-26] VITALS: Ht 165.1 cm; Wt 117.0 kg
[~2021-05-26 14:22] MED LIST changes: -CITA10TA7; +CITA10TA9; +POTA-169; -POTA20TA8
--- OUTSIDE RECORDS SUMMARY | 2021-05-26 14:27 | XMS REPORT | Clinical Summary ---
Author Author [facility] Organization [facility] Address Unknown Phone Unavailable Care Team Providers Care Archivist Economic History Name Role Phone PCP Unavailable Allergies Not on File Medications Not on file Active Problems Not on file Social History Date Tobacco Use Types Packs/Day Years Used Never Assessed Sex Assigned at Date Recorded Not on file Last Filed Vital Signs Not on file Plan of Treatment Health Maintenance Due Date Last Done Comments Td/Tdap# 1965 Cervical Cancer Screening 1986 via Pap Smear Zoster Vaccine# (1 of 2) 2015 Influenza Vaccine (#1) 2021 Pneumococcal Vaccine: Aged Out No longer eligib le based on patient's age to Pediatrics (0 to 5 Years) complete this topic and At-Risk Patients (6 to 64 Years) Results Not on filefrom Last 3 Months Insurance Type Payer Benefit Subscriber ID Effective Phone Address Plan / Dates Group Medicare MEDICARE MEDICARE [id number] 1994-P [phone] [employer] PART A B resent ATTN CLAIMS DEPT [address] [place] [address] Indemnity [employer] [id number] 2017- [address] [place] [address] MEDICAID MANAGED CARE [facility] [id number] 2017- [phone] [facility] [address] [facility] Present [address] [place] [id number] 1 Elayne Serna Personal/F Self 1965 [address] [facility] [facility] [address] [place], [place] [address] Elayne Serna Personal/F Self 1965 [address] [place], [place] [address] Elayne Serna Transplant Self 1965 [address] [facility] [place], [place] [address] 1
--- OUTSIDE RECORDS SUMMARY | 2021-05-26 14:27 | XMS REPORT | Clinical Summary ---
Author Author [facility] Organization [facility] Address Unknown Phone Unavailable Care Team Providers Care Barrel Rib Matting Machine Operator Name Role Phone Romie Medina MD Unavailable Unavailable Placido Cheatham APRN-MOUNTER SMOKING PIPE Unavailable [phone] Deepti Rayo Unavailable Allen Cardoso MD Unavailable Unavailable Stephen DONNELLY PA-C, James R Unavailable [phone] Sheron Wing MA Unavailable Unavailable Stuart Almonte MD PCP Margie Hays MA Unavailable Unavailable Jose Hinton MD Unavailable Source Comments Some departments are not documenting in the electronic medical record. If you d o not see the information that you expected, contact Release of Information in [facility] Information Management department at [phone] for further assistan ce in locating additional records.[facility] Allergies Comments Active Allergy Reactions Severity Noted Date Sulfa (Sulfonamide RASH 11/23/2011 Antibiotics) Vancomycin FEVER, RASH 12/03/2011 Medications End Date Status Medication Sig Dispensed Refills Start Date Active PHENobarbital (LUMINAL) Take 60 mg by 0 60 mg tablet mouth daily. Active Sodium Bicarbonate 100 % Take by 0 powd mouth daily. 1 tsp baking soda Active fish,bora,flax Take 1 Tab by 0 oils-om3,6,9 #1 (OMEGA mouth daily. 3-6-9) 1,200 mg cap Active LORazepam (ATIVAN) 1 mg Take 1 mg by 0 tablet mouth as Needed. Active magnesium Take 144 mEq 0 by mouth twice daily. Active POTASSIUM IODIDE/IODINE Take 10 Drops 0 (IODINE STRONG (LUGOLS) by mouth PO) twice daily. 2.2% Active BORON PO Take 1 Tab by 0 mouth daily. Active selenium 200 mcg tab Take 200 mcg 0 tablet by mouth daily. Active ascorbic acid (VITAMIN-C) Take 1,000 mg 0 500 mg tablet by mouth daily. Active MAGNESIUM CHLORIDE PO Take 520 mg 0 by mouth twice daily. Active CALCIUM CITRATE/VITAMIN Take 2 Tabs 0 D3 (CALCIUM CITRATE + D by mouth PO) twice daily. Active VITAMIN K2 PO Take 100 mcg 0 by mouth daily. Active levothyroxine (SYNTHROID) Take 50 mcg 0 50 mcg tablet by mouth daily. Active solifenacin(+) (VESICARE) Take 5 mg by 0 5 mg tablet mouth daily. Active potassium chloride SR Take 10 mEq 0 (K-DUR) 10 mEq tablet by mouth daily. Active indapamide(+) (LOZOL) Take 1.25 mg 0 1.25 mg tablet by mouth every morning. Active nitrofurantoin SR Take 100 mg 0 (MACROBID) 100 mg capsule by mouth every 12 hours. Active tamsulosin (FLOMAX) 0.4 Take 1 Cap by 90 Cap 3 09/16/201 mg capsuleIndications: mouth daily. 6 Kidney stone Take 30 min after same meal. Do not cut/ crush/ chew. Active calcitriol (ROCALTROL) Take 0.25 mcg 0 0.25 mcg capsule by mouth daily. pt takes 3 caps daily. Active potassium citrate(+) Take 10 mEq 0 (UROCIT-K) 10 mEq (1,080 by mouth mg) tablet daily. Active Problems Problem Noted Date Kidney stone on right side 09/17/2015 Overview: Formatting of this note might be differ ent from the original. 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 05/2015: CT - 4mm non-obstructing stone. 1 cm renal cyst. Asymptomatic. Recurrent UTI 09/17/2015 Overview: Formatting of this note might be differ ent from the original. Recurrent UTIs since bout of Pyelonephr itis in 2014. 09/17/2015: UA POS. PVR 100. L ast Assessment & Plan: Formatting of this note might be differ ent from the original. Patient counseled today on double voidi ng to further empty her bladder. We will also start her on flomax for her h igh PVR. UA positive today for infection, will treat empirically and f ollow up culture. Will continue to monitor kidney stone, which has been as ymptomatic. Constipation regimen. Referral to nephrology for CKD. Plan: Bowel regimen. Timed and double voidin g. Flomax for incomplete emptying and Kefl ex for UTI Monitor stone Referral to nephrology for CKD and gilberto fitzgerald kidney RTC 3 weeks to re-assess. Acute pyelonephritis 12/10/2014 hypoparathyroidism 12/16/2013 Hypocalcemia 12/16/2013 Arthritis pain of hip 12/12/2012 Overview: Formatting of this note might be differ ent from the original. Recent diagnosis of melorheostosis righ t hip/femur hypoparathyroidism 12/12/2012 Generalized seizure disorder 12/12/2012 Chronic pyelonephritis as indication for [place] nephr ectomy 12/12/2012 Surgical History Surgery Date Site/Laterality Comments NEPHRECTOMY 1994 left; for infected kidney HX CATARACT REMOVAL Medical History Medical History Date Comments Hypoparathyroidism (HCC) congenital; hypocalcemia, hyperphosphatemia, intracranial calcifications Seizure disorder (HCC) Recurrent UTI with gross urosepsis of dam aged kidney Morbid obesity (HCC) Degenerative arthritis of hip and both knees Reactive depression (situational) withdrawal Hypothyroidism Family History Medical History Relation Name Comments None Reported Brother None Reported Father Liver Cancer Mother hepatitis C Relation Name Status Comments Brother Alive Father Alive Mother Social History Date Tobacco Use Types Packs/Day Years Used Never Smoker Smokeless Tobacco: Never Used Comments Alcohol Use Standard Drinks/Week No 0 (1 standard drink = 0.6 o z pure alcohol) Sex Assigned at Date Recorded Not on file Last Filed Vital Signs Reading Time Taken Comments Vital Sign 124/71 07/10/2019 1:26 PM CONDITIONER TUMBLER OPERATOR Blood Pressure 78 07/10/2019 1:26 PM CONDITIONER TUMBLER OPERATOR Pulse 34.7 C (94.5 F) 07/10/2019 1:26 PM CONDITIONER TUMBLER OPERATOR Temperature 16 12/08/2012 1:10 PM CDT Respiratory Rate 100% 07/10/2019 1:26 PM CONDITIONER TUMBLER OPERATOR Oxygen Saturation - - Inhaled Oxygen Concentration 117.9 kg (260 lb) 07/10/2019 9:32 AM CONDITIONER TUMBLER OPERATOR Weight 165.1 cm (5' 5") 07/10/2019 9:32 AM CONDITIONER TUMBLER OPERATOR Height 43.27 07/10/2019 9:32 AM CONDITIONER TUMBLER OPERATOR Body Mass Index Plan of Treatment Health Maintenance Due Date Last Done Comments MEDICARE ANNUAL WELLNESS 1965 VISIT HIV SCREENING 1980 DTAP/TDAP VACCINES (1 - 1983 Tdap) HEPATITIS C SCREENING 1983 PHYSICAL (COMPREHENSIVE) 1983 EXAM CERVICAL CANCER SCREENING 1986 BREAST CANCER SCREENING 2005 COLORECTAL CANCER 2015 SCREENING SHINGLES RECOMBINANT 2015 VACCINE (1 of 2) INFLUENZA VACCINE 12/22/2020 Results Not on filefrom Last 3 Months Insurance Type Payer Benefit Subscriber ID Effective Phone Address Plan / Dates Group Medicare MEDICARE MEDICARE [id number] 1994-P [phone] [address] [place] [address] Medicaid [facility] MEDICAID [facility] [id number] 2012-P [address] [place] [address] [phone] Advance Directives Patient Behavioral Technician Explanation Type Date Recorded Advance 04/24/2013 4:10 PM Directive/DPOA Care Teams Start Date End Date Barrel Rib Matting Machine Operator Relationship Specialty 02/04/16 Stuart Almonte MD PCP - General [address] [place] [address] 11/23/11 Romie Medina MD Nephrology Retired 04/10/16 03/27/13 Placido Cheatham, Nephrology OPTICAL DISPENSER-MOUNTER SMOKING PIPE [address] [facility] [address] [place] [address] 04/16/14 Deepti Rayo, AUD Electric Appliance Installer [address] [place] [address] 09/17/15 Allen Cardoso MD Urology Retired 10/15/15 Blake Mitchell III, Urology PA-C [address] [place] [facility] [address] [place] [address] 02/03/16 Sheron Wing MA Maternal and Medicine 02/04/16 Margie Hays MA 06/30/16 Jose Hinton MD Dialysis [address] [place] [address] [place] [id number]
[2021-05-26] MEDS ORDERED: NS (IVPB) 250 ML IV STA (15:25)
[2021-05-26] MEDS ORDERED: ONDANSETRON 4 MG/2 ML (SDV) Z0FRAN IV ONE (15:30)
[2021-05-26 16:12] LABS: INR 0.9 (0.8-1.4); PROTHROMBIN TIME PATIENT 12.6 SEC (12.2-14.7)
[2021-05-26 16:19] LABS: HEMATOCRIT 30 % (35-52); HEMOGLOBIN 10.2 g/dL (11.5-16.0); MEAN CORPUSCULAR HEMOGLOBIN 32 pg (25-34); MEAN CORPUSCULAR HGB CONC 34 g/dL (32-36); MEAN CORPUSCULAR VOLUME 94 fL (80-99); MEAN PLATELET VOLUME 10.2 fL (9.0-12.2); PLATELET COUNT 123 10^3/uL (130-400); WHITE BLOOD COUNT 4.1 10^3/uL (4.3-11.0)
[2021-05-26 16:20] LABS: BASOPHILS % (AUTO) 0 % (0-10); EOSINOPHILS % (AUTO) 1 % (0-10); LYMPHOCYTES # (AUTO) 1.2 X 10^3 (1.0-4.0); LYMPHOCYTES % (AUTO) 29 % (12-44); MONOCYTES # (AUTO) 0.4 X 10^3 (0.0-1.0); MONOCYTES % (AUTO) 9 % (0-12); NEUTROPHILS # (AUTO) 2.5 X 10^3 (1.8-7.8); NEUTROPHILS % (AUTO) 61 % (42-75)
[2021-05-26 16:31] LABS: SODIUM 139 MMOL/L (135-145)
[2021-05-26 16:32] LABS: ALANINE AMINOTRANSFERASE 36 U/L (0-55); ALBUMIN 3.4 GM/DL (3.2-4.5); ALKALINE PHOSPHATASE 85 U/L (40-136); BILIRUBIN,TOTAL 1.2 MG/DL (0.1-1.0); BUN/CREATININE RATIO 5; CALCIUM 7.3 MG/DL (8.5-10.1); CARBON DIOXIDE 30 MMOL/L (21-32); CHLORIDE 95 MMOL/L (98-107); CREATININE SERUM 5.55 MG/DL (0.60-1.30); GFR ESTIMATED 8; GLUCOSE 91 MG/DL (70-105); POTASSIUM 3.3 MMOL/L (3.6-5.0); TOTAL PROTEIN 7.2 GM/DL (6.4-8.2)
--- NOTE | 2021-05-26 17:02 | ED General ---
General Chief Complaint: Abdominal/GI Problems Stated Complaint: DIAHRREA; LOW HR Nursing Triage Note: PT TO ROOM FS03 VIA W/C WITH C/O DIARRHEA, CHILLS, COUGH, AND NOT EATING. Source of Information: Patient History of Present Illness Date Seen by Provider: May 26, 2021 Time Seen by Provider: 14:30 Initial Comments 56-year-old female reporting to room 3 in the ED with complaints of over 2 weeks of chills. She also states that she has been having vomiting with diarrhea and coughing. She has not been wanting to eat or drink because of not feeling well and poor taste. She had dialysis today and they told her that she had not gained any weight. They had dialyzed her but then told her to come to the emergency department to be evaluated. She denies having any chest pain. She states that her dialysis nurses encouraged her to come to the emergency department to be checked out. She has had some nasal congestion and cough. She was unaware of any ill contacts Timing/Duration: Other (Over 2 weeks of feeling chilled and cough with shortness of breath) Modifying Factors: worse with Movement Associated Systoms: No Chest Pain; Cough; No Diaphoresis, No Fever/Chills, No Headaches; Loss of Appetite, Malaise, Nausea/Vomiting; No Rash, No Seizure; Shortness of Air; No Syncope; Weakness Allergies and Home Medications Allergies Coded Allergies: Sulfa (Sulfonamide Antibiotics) (Verified Allergy, Unknown, 08/28/18) vancomycin (Verified Allergy, Unknown, 08/28/18) Patient Home Medication List Home Medication List Reviewed: Yes Calcitriol (Calcitriol) 0.25 Mcg Capsule, (Reported) Entered as Reported by: ANDERSON CARTER on 08/29/1854 Calcium Acetate (Calcium Acetate) 667 Mg Capsule, (Reported) Entered as Reported by: ANDERSON CARTER on 08/29/1854 Cephalexin (Cephalexin) 500 Mg Tablet, 500 MG PO TID Prescribed by: BEL DHALIWAL on 10/28/19 0556 Cetirizine HCl (Cetirizine HCl) 10 Mg Tablet, (Reported) Entered as Reported by: ANDERSON CARTER on 08/29/1854 Citalopram Hydrobromide (Citalopram HBr) 10 Mg Tablet, (Reported) Entered as Reported by: ANDERSON CARTER on 08/29/1854 Hydrocodone/Acetaminophen (Hydrocodone-Acetamin 5-325 mg) 1 Each Tablet, 1 EACH PO Q4H Prescribed by: BEL MILLIGANSTINE on 10/28/19 0512 Levothyroxine Sodium (Levothyroxine Sodium) 200 Mcg Tablet, (Reported) Entered as Reported by: ANDERSON CARTER on 08/29/1854 Lorazepam (Lorazepam) 1 Mg Tablet, (Reported) Entered as Reported by: ANDERSON CARTER on 08/29/1854 Metolazone (Metolazone) 2.5 Mg Tablet, (Reported) Entered as Reported by: ANDERSON CARTER on 08/29/1854 Ondansetron (Ondansetron Odt) 4 Mg Tab.rapdis, 4 MG PO Q6H PRN for NAUSEA/VOMITING Prescribed by: KIMBERLY VITAL on 05/26/211920 Potassium Chloride (Klor-Con M20) 20 Meq Tab.er.prt, (Reported) Entered as Reported by: ANDERSON CARTER on 08/29/1854 Potassium Chloride (Potassium Chloride) 20 Meq Tablet.er, (Reported) Entered as Reported by: ANDERSON CARTER on 08/29/1854 Tamsulosin HCl (Flomax) 0.4 Mg Cap, (Reported) Entered as Reported by: ANDERSON CARTER on 08/29/1854 [Tamsulosin] , (Reported) Entered as Reported by: ANDERSON CARTER on 08/29/1854 Review of Systems Review of Systems Constitutional: chills (For over 2 weeks), malaise, weakness (Generalized) EENTM: epistaxis (Intermittently), nose congestion Respiratory: cough, dyspnea on exertion, short of breath; No stridor, No wheezing Cardiovascular: edema Gastrointestinal: No abdominal pain; diarrhea, nausea, vomiting Genitourinary: see HPI; No dysuria (Patient still makes some urine and denies any pain with urination) Musculoskeletal: no symptoms reported Skin: No rash Psychiatric/Neurological: See HPI, Weakness (Generalized) Past Jwdsamx-Baebau-Irzqcq Hx Patient Social History Tobacco Use?: No Smoking Status: Never a Smoker Smokeless Tobacco Frequency: Never a User Use of E-Cig and/or Vaping dev: No Use of E-Cig and/or Vaping Migel: Never a User Substance use?: No Alcohol Use?: No Pt feels they are or have been: No Immunizations Up To Date Tetanus Booster (TDap): Unknown First/Initial COVID19 Vaccinat: UNKNOWN DATE Second COVID19 Vaccination Jelani: UNKNOWN DATE COVID19 Vaccine Pickle Processor: dineoutA Seasonal Allergies Seasonal Allergies: No Past Medical History Surgeries: Yes (Left nephrectomy, left knee surgery) Arteriovenous Shunt, Dialysis Respiratory: No Cardiac: No Neurological: No Seizure Disorder Genitourinary: Yes Renal Failure, Dialysis Gastrointestinal: No Musculoskeletal: No Endocrine: No HEENT: Yes Hearing Impairment: Bilateral Hearing Aide Cancer: No Psychosocial: No Integumentary: Yes Psoriasis Blood Disorders: No Physical Exam Vital Signs Vital Signs - First Documented 05/26/21 05/26/21 14:30 19:37 Temp 37.3 Pulse 73 Resp 17 B/P (MAP) 135/71 (92) Pulse Ox 99 O2 Delivery Room Air Capillary Refill : Less Than 3 Seconds Height, Weight, BMI Height: 5'5.00" Weight: 273lbs. oz. 123.682568vi; 42.00 BMI Method:Stated General Appearance: No Apparent Distress, Chronically ill (Appears to not feel well and has chronic ill appearance.) HEENT: PERRL/EOMI; No Moist Mucous Membranes (Slightly dry mucous membranes) Neck: Full Range of Motion, Normal Inspection, Non Tender, Supple Respiratory: Chest Non Tender, Normal Breath Sounds, No Accessory Muscle Use, No Respiratory Distress, Decreased Breath Sounds Cardiovascular: Regular Rate, Rhythm, Normal Peripheral Pulses Gastrointestinal: Normal Bowel Sounds, No Pulsatile Mass, Non Tender, Soft Rectal: Deferred Back: No No CVA Tenderness, No No Vertebral Tenderness Extremity: Normal Capillary Refill, Normal Inspection, No Calf Tenderness, Pedal Edema (1+ bilateral lower extremity pitting edema) Neurologic/Psychiatric: Alert, Oriented x3, small business director II-XII Norm as Tested Reflexes: 2+ Bicep (R), 2+ Bicep (L), 2+ Knee (R), 2+ Knee (L), 2+ Ankle (R), 2+ Ankle (L) Skin: Normal Color, Warm/Dry Focused Exam Lactate Level 05/26/21 15:47: Lactic Acid Level 1.27 Lactic Acid Level Laboratory Tests Test 05/26/21 15:47 Lactic Acid Level 1.27 MMOL/L (0.50-2.00) Progress/Results/Core Measures Suspected Sepsis SIRS Temperature: Pulse: 73 Respiratory Rate: 17 Laboratory Tests 05/26/21 15:47: White Blood Count 4.1L Blood Pressure 135 /71 Mean: 92 05/26/21 15:47: Lactic Acid Level 1.27 Laboratory Tests 05/26/21 15:47: Creatinine 5.55H, INR Comment 0.9, Platelet Count 123L, Total Bilirubin 1.2H Results/Orders Lab Results Laboratory Tests Test 05/26/21 15:35 05/26/21 15:47 Range/Units Influenza Type A Antigen NEGATIVE NEGATIVE Influenza Type B Antigen NEGATIVE NEGATIVE SARS-CoV-2 RNA (RT-PCR) Positive H Negative White Blood Count 4.1 L 4.3-11.0 10^3/uL Red Blood Count 3.18 L 3.80-5.11 10^6/uL Hemoglobin 10.2 L 11.5-16.0 g/dL Hematocrit 30 L 35-52 % Mean Corpuscular Volume 94 80-99 fL Mean Corpuscular Hemoglobin 32 25-34 pg Mean Corpuscular Hemoglobin Concent 34 32-36 g/dL Red Cell Distribution Width 14.0 10.0-14.5 % Platelet Count 123 L 130-400 10^3/uL Mean Platelet Volume 10.2 9.0-12.2 fL Immature Granulocyte % (Auto) 1 % Neutrophils (%) (Auto) 61 42-75 % Lymphocytes (%) (Auto) 29 12-44 % Monocytes (%) (Auto) 9 0-12 % Eosinophils (%) (Auto) 1 0-10 % Basophils (%) (Auto) 0 0-10 % Neutrophils # (Auto) 2.5 1.8-7.8 X 10^3 Lymphocytes # (Auto) 1.2 1.0-4.0 X 10^3 Monocytes # (Auto) 0.4 0.0-1.0 X 10^3 Eosinophils # (Auto) 0.0 0.0-0.3 10^3/uL Basophils # (Auto) 0.0 0.0-0.1 10^3/uL Immature Granulocyte # (Auto) 0.0 0.0-0.1 10^3/uL Percent Immature Platelet Fraction 2.6 0.0-7.6 % Prothrombin Time 12.6 12.2-14.7 SEC INR Comment 0.9 0.8-1.4 Activated Partial Thromboplast Time 25 24-35 SEC Sodium Level 139 135-145 MMOL/L Potassium Level 3.3 L 3.6-5.0 MMOL/L Chloride Level 95 L 98-107 MMOL/L Carbon Dioxide Level 30 21-32 MMOL/L Anion Gap 14 5-14 MMOL/L Blood Urea Nitrogen 29 H 7-18 MG/DL Creatinine 5.55 H 0.60-1.30 MG/DL Estimat Glomerular Filtration Rate 8 BUN/Creatinine Ratio 5 Glucose Level 91 70-105 MG/DL Lactic Acid Level 1.27 0.50-2.00 MMOL/L Calcium Level 7.3 L 8.5-10.1 MG/DL Corrected Calcium 7.8 L 8.5-10.1 MG/DL Magnesium Level 1.7 1.6-2.4 MG/DL Total Bilirubin 1.2 H 0.1-1.0 MG/DL Aspartate Amino Transf (AST/SGOT) 62 H 5-34 U/L Alanine Aminotransferase (ALT/SGPT) 36 0-55 U/L Alkaline Phosphatase 85 40-136 U/L Troponin I < 0.30 <0.30 NG/ML C-Reactive Protein 6.92 H <0.50 MG/DL Total Protein 7.2 6.4-8.2 GM/DL Albumin 3.4 3.2-4.5 GM/DL My Orders Orders - KIMBERLY VITAL MD Monitor-Rhythm Ecg Trace Only (05/26/21 15:20) Ed Iv/Invasive Line Start (05/26/21 15:20) Cbc With Automated Diff (05/26/21 15:20) Comprehensive Metabolic Panel (05/26/21 15:20) Crp Fs (05/26/21 15:20) Troponin I Fs (05/26/21 15:20) Protime With Inr (05/26/21 15:20) Partial Thromboplastin Time (05/26/21 15:20) Ekg Tracing (05/26/21 15:20) Ondansetron Injection (Zofran Injectio (05/26/21 15:30) Magnesium (05/26/21 15:20) Ua Culture If Indicated (05/26/21 15:20) Covid 19 Inhouse Test (05/26/21 15:20) Influenza A & B Antigens (05/26/21 15:20) Isolation Central Supply Req (05/26/21 15:20) Blood Culture (05/26/21 15:20) Lactic Acid Analyzer (05/26/21 15:20) Ct Chest/Abdomen/Pelvis Wo (05/26/21 15:20) Ns (Ivpb) (Sodium Chloride 0.9%) (05/26/21 15:25) Rx-Ondansetron Po (Rx-Zofran Po) (05/26/21 19:30) Medications Given in ED Current Medications Medications Dose Ordered Sig/Richelle Route Start Time Stop Time Status Last Admin Dose Admin Ondansetron HCl 4 mg Q6H PRN PO 05/26/21 19:30 05/26/21 19:38 DC 05/26/21 19:24 4 MG Vital Signs/I&O 05/26/21 05/26/21 14:30 19:37 Temp 37.3 37.3 Pulse 73 89 Resp 17 16 B/P (MAP) 135/71 (92) 109/63 Pulse Ox 99 O2 Delivery Room Air Room Air 05/27/21 00:00 Intake Total 250 ml Balance 250 ml Capillary Refill : Less Than 3 Seconds Blood Pressure Mean: 92 Progress Note #1: Progress Note Obtain basic labs including electrolytes and magnesium. Cardiac enzymes as well as proBNP. Chest x-ray to look for signs of pneumonia. Give 250 mL bolus of normal saline. Electrocardiogram to look for acute ischemic changes. Counseled on follow-up and return precautions. Progress Note #2: Progress Note Labs appear stable with chronic kidney disease. She does have continued elevated creatinine. Her blood pressure improved with hydration. The CT scan of the chest abdomen and pelvis did show signs of patchy groundglass infiltrates in the lungs consistent with Covid infection. Her influenza swab was negative and her Covid still pending. Progress Note #3: Progress Note Patient reported feeling better when reviewing results with her. The Covid swab did come back positive. Her scan did show early patchy groundglass infiltrates for Covid pneumonia. Patient was tolerating oxygen saturations in the upper 90% range on room air. Advised that we would not have an indication to admit her to the hospital at this point she should follow-up through the clinic for additional concerns and management. As patient stated she was feeling better and her blood pressure oxygen saturations were staying up will discharge to home with return precautions. Treat symptomatically with nausea medicine help keep her stomach more settled. ECG Initial ECG Impression Date: May 26, 2021 Initial ECG Impression Time: 16:49 Initial ECG Rate: 73 Initial ECG Rhythm: Normal Sinus Initial ECG Comparisson: Unchanged Comment Sinus rhythm with a heart rate of 73 bpm with artifact on the tracing. No acute ST elevation. QT interval 449 ms with a QTc interval 495 ms. Appears similar to prior tracings in the system other than there is more artifact on today's tracing. Diagnostic Imaging Diagonstic Imaging: CT Plain Films/CT/US/NM/MRI: chest, abdomen, pelvis Comments [facility] [place], [place] NAME: [facility] REC#: [id number] PT STATUS: REG ER : 1965 PHYSICIAN: KIMBERLY VITAL MD ADMIT DATE: 05/26/21/ER FS Signed Date of Exam:05/26/21 CT CHEST/ABDOMEN/PELVIS WO INDICATION: Fever and chills. Nausea and vomiting. TECHNIQUE: Multiple contiguous axial images were obtained through the chest, abdomen, and pelvis without the use of intravenous contrast. Auto Exposure Controls were utilized during the CT exam to meet ALARA standards for radiation dose reduction. COMPARISON: There is no prior CT chest, abdomen, and pelvis for comparison. FINDINGS: CT CHEST: There are no enlarged mediastinal or hilar nodes. There are no enlarged axillary nodes or chest wall lesions. There is no pleural or pericardial fluid. There are alveolar and groundglass infiltrates in the lower lobes on both sides as well as some minimal groundglass infiltrate in the left upper lobe. The findings are suspicious for pneumonia, suggest correlation with Covid status. There is no pulmonary parenchymal mass lesion. There are diffuse degenerative changes throughout the thoracic spine. CT ABDOMEN/PELVIS: The liver appears unremarkable. The gallbladder is filled with large stones. The spleen, adrenals, and pancreas are normal. The right kidney is somewhat atrophic with some perinephric scarring. The left kidney is absent. There is no retroperitoneal mass or adenopathy. There is no ascites or abnormal fluid collection. The visualized bowel loops appear unremarkable. There is no pelvic mass or free fluid. IMPRESSION: CT CHEST: There are patchy alveolar and groundglass infiltrates, predominantly in the lower lobes, compatible with pneumonia. Recommend correlation with Covid status. There is no pleural fluid. CT ABDOMEN/PELVIS: There are large gallstones in the gallbladder without pericholecystic inflammatory change. The patient has had previous left nephrectomy. The right kidney is somewhat atrophic. No acute process is visualized in the abdomen or pelvis. Dictated by: Dictated on workstation # [id number] Dict: 05/26/21 1652 Trans: 05/26/211804 [id number] Interpreted by: DONNIE RIGGS MD Electronically signed by: DONNIE RIGGS MD 05/26/211804 Reviewed: Reviewed by Me Departure Impression Primary Impression: COVID-19 virus infection Additional Impressions: Nausea & vomiting Qualified Codes: R11.14 - Bilious vomiting Dehydration Disposition: HOME, SELF-CARE Condition: Stable Departure-Patient Inst. Decision time for Depature: 19:19 Referrals: ELADIA LEE MD (PCP/Family) Primary Care Physician Patient Instructions: Dehydration, Adult ED, COVID-19 ED Add. Discharge Instructions: Use the dissolving nausea tablets to help keep her stomach settled so he can drink and stay hydrated. Follow-up with your dialysis providers and let them know that you are positive for Covid. If you are having worsening symptoms or more problems then follow-up or return for further evaluation. Otherwise try to quarantine and stay isolated other than when you have to go to dialysis. Make sure that you are wearing a mask to help prevent transmission and exposure of other people to Covid. All discharge instructions reviewed with patient and/or family. Voiced understanding. Scripts Ondansetron (Ondansetron Odt) 4 Mg Tab.rapdis 4 MG PO Q6H PRN for NAUSEA/VOMITING for 4 Days, #16 TAB 0 Refills Prov: KIMBERLY VITAL MD 05/26/21 KIMBERLY VITAL MD May 26, 2021 17:02
[2021-05-26] MEDS ORDERED: ONDA4TAB11 PO (19:21)
[2021-05-26] MEDS ORDERED: RX-ONDANSETRON 4 MG ODT (ZOFRAN) PPK #4 PO PRN (19:30)
[2021-05-26 19:37] VITALS: BP 109/63
== END 2021-05-26 19:38 | disposition home or self-care (01) ==
LOC: EDUNIT# 14:22 → ER FS 14:23
DX: U07.1 COVID-19 (principal); R11.2 Nausea with vomiting, unspecified; E86.0 Dehydration; G40.909 Epilepsy, unspecified, not intractable, without status epilepticus; Z79.899 Other long term (current) drug therapy
CPT/HCPCS: 36415; 71250; 74176; 80053; 83605; 83735; 84484; 85025; 85610; 85730; 86141; 87040; 87636; 87804; 93005; 93041

== ENCOUNTER → 2021-07-01 | Outpatient (CLI) | payer MEDICARE, MEDICAID ==
[~2021-07-01] MED LIST changes: +ONDA4TAB11 PO
--- NOTE | 2021-07-01 15:11 | Diagnostic Imaging Report ---
INDICATION: Neck pain. TIME OF EXAM: 2:23 PM. FINDINGS: AP and lateral as well as odontoid views of the cervical spine were obtained. There are large anterior osteophytes at all levels of the cervical spine. These are bridging at the C4-C5 level. There is some disc space narrowing at the C4-C5 level. No fractures are seen. The prevertebral tissues are normal. The odontoid appears intact. IMPRESSION: Cervical spondylosis. No acute bony abnormality is detected. Dictated by: Dictated on workstation # [id number]
--- NOTE | 2021-07-01 15:19 | Diagnostic Imaging Report ---
INDICATION: Back pain. COMPARISON: None. FINDINGS: Frontal and lateral views of the thoracic spine were obtained. Visualization of the upper thoracic spine is limited on the lateral projection. Alignment and vertebral heights are maintained. There is no fracture or destructive process. There are no large paraspinal masses. Mild multilevel degenerative disease is noted in the thoracic spine. Limited views of the lungs are clear. IMPRESSION: 1. No acute fracture or dislocation of the thoracic spine. 2. Mild multilevel degenerative changes. Dictated by: Dictated on workstation # [id number]
== END ==
LOC: RAD FS 14:02
PROVIDERS: ATTEND Family Medicine
DX: M47.812 Spondylosis without myelopathy or radiculopathy, cervical region (principal); M47.814 Spondylosis without myelopathy or radiculopathy, thoracic region
CPT/HCPCS: 72040; 72072

== ENCOUNTER 2022-03-09 08:52 | Emergency (ER) | payer MEDICARE, MEDICAID ==
[2022-03-09] MEDS ORDERED: ACETAMINOPHEN 325 MG TABLET PO STA (09:20)
[2022-03-09] MEDS ORDERED: NS (IVPB) 250 ML IV STA (09:20)
[2022-03-09 09:31] LABS: BASOPHILS % (AUTO) 0 % (0-10); EOSINOPHILS # (AUTO) 0.1 10^3/uL (0.0-0.3); EOSINOPHILS % (AUTO) 1 % (0-10); HEMATOCRIT 30 % (35-52); HEMOGLOBIN 10.6 g/dL (11.5-16.0); LYMPHOCYTES # (AUTO) 1.1 10^3/uL (1.0-4.0); LYMPHOCYTES % (AUTO) 11 % (12-44); MEAN CORPUSCULAR HEMOGLOBIN 32 pg (25-34); MEAN CORPUSCULAR HGB CONC 35 g/dL (32-36); MEAN CORPUSCULAR VOLUME 93 fL (80-99); MEAN PLATELET VOLUME 10.3 fL (9.0-12.2); MONOCYTES # (AUTO) 0.5 10^3/uL (0.0-1.0); MONOCYTES % (AUTO) 5 % (0-12); NEUTROPHILS # (AUTO) 7.6 10^3/uL (1.8-7.8); NEUTROPHILS % (AUTO) 82 % (42-75); PLATELET COUNT 198 10^3/uL (130-400); WHITE BLOOD COUNT 9.3 10^3/uL (4.3-11.0)
[2022-03-09 09:47] LABS: POTASSIUM 4.2 MMOL/L (3.6-5.0)
[2022-03-09 09:48] LABS: ALBUMIN 3.8 GM/DL (3.2-4.5); BILIRUBIN,TOTAL 1.5 MG/DL (0.1-1.0); CALCIUM 9.3 MG/DL (8.5-10.1); CREATININE SERUM 8.41 MG/DL (0.60-1.30); MAGNESIUM 1.8 MG/DL (1.6-2.4); TOTAL PROTEIN 7.5 GM/DL (6.4-8.2)
--- NOTE | 2022-03-09 10:05 | Diagnostic Imaging Report ---
PROCEDURE: CT abdomen and pelvis without contrast. TECHNIQUE: Multiple contiguous axial images were obtained through the abdomen and pelvis without the use of intravenous contrast. Auto Exposure Controls were utilized during the CT exam to meet ALARA standards for radiation dose reduction. INDICATION: Right flank pain, history left nephrectomy. COMPARISON: 03/26/2022 FINDINGS: Multiple gallstones redemonstrated but no secondary features of cholecystitis. There is chronic cortical thinning and atrophy of the solitary right kidney with unchanged nonobstructing renal calculi. No hydroureteronephrosis. No radiopaque ureteral stone. Bladder unremarkable. Uterus and adnexa nonacute. There is no appendicitis or diverticulitis. The left nephrectomy bed unremarkable. Adrenal glands present bilaterally. No biliary dilatation. Pancreas unremarkable. Spleen is negative. The aorta is nonaneurysmal. 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 IMPRESSION: 1. Severe chronic degenerative change stable. No acute bony abnormality. 2. Atrophic solitary right kidney with unchanged nonobstructing stones. 3. Cholelithiasis with no findings to suggest acute cholecystitis. 4. No bowel, biliary or urinary tract obstruction, ascites or fluid collection. Dictated by: Dictated on workstation # [id number]
[2022-03-09 10:37] VITALS: BP 124/78
--- NOTE | 2022-03-09 13:00 | ED Back Pain ---
General Chief Complaint: Back Problems Stated Complaint: RT FLANK PAIN Nursing Triage Note: Patient has presented to ER with very vague complaint. She reports some right side back pain. She reports some cramping in her legs. She reports that yesterday she had soft stool. She reports that she did not go to dialysis this morning because her back was hurting. Source of Information: Patient History of Present Illness Date Seen by Provider: Mar 09, 2022 Time Seen by Provider: 08:54 Initial Comments 56-year-old female presenting with vague complaints. She states that she has had some right-sided back pain since Wednesday. She also has had some cramping in her legs and thought that it was due to calcium so she had taken for calcium pills yesterday. She was not feeling well this morning so she did not go to her dialysis in [place]. She was started on ciprofloxacin as an antibiotic for possible urine infection recently. She states that she is still taking this antibiotic. She denies having fever, chills, cough, shortness of breath, chest pain, abdominal pain, nausea, vomiting. She feels like her stools are looser than normal but she does take a stool softener every day. She also is taking ciprofloxacin currently and states that the provider did prescribe that for her told her that it could cause vomiting and diarrhea and if that happened to be seen in the emergency department. She denies having diarrhea or vomiting currently but states that her stools were softer than usual. Timing/Duration: 3-4 Days Severity: Moderate Pain/Injury Location: Back (right low back/flank) Radiation: Other (no radiation) Method of Injury: Fall (last week) Modifying Factors: Worse With Movement Associated Symptoms: muscle spasms; No fever, No weakness, No numbness in legs/feet, No tingling in legs/feet, No sensory/motor loss; lower back pain (right lower back/flank pain); No loss of bladder control, No loss of bowel control Allergies and Home Medications Allergies Coded Allergies: Sulfa (Sulfonamide Antibiotics) (Verified Allergy, Unknown, 08/28/18) vancomycin (Verified Allergy, Unknown, 08/28/18) Patient Home Medication List Home Medication List Reviewed: Yes Calcitriol (Calcitriol) 0.25 Mcg Capsule, (Reported) Entered as Reported by: ANDERSON CARTER on 08/29/18 0055 Calcium Acetate (Calcium Acetate) 667 Mg Capsule, (Reported) Entered as Reported by: ANDERSON CARTER on 08/29/1854 Cephalexin (Cephalexin) 500 Mg Tablet, 500 MG PO TID Prescribed by: BEL DHALIWAL on 10/28/19 0556 Cetirizine HCl (Cetirizine HCl) 10 Mg Tablet, (Reported) Entered as Reported by: ANDERSON CARTER on 08/29/1854 Citalopram Hydrobromide (Citalopram HBr) 10 Mg Tablet, (Reported) Entered as Reported by: ANDERSON CARTER on 08/29/1854 Hydrocodone/Acetaminophen (Hydrocodone-Acetamin 5-325 mg) 1 Each Tablet, 1 EACH PO Q4H Prescribed by: BEL DHALIWAL on 10/28/19 0512 Levothyroxine Sodium (Levothyroxine Sodium) 200 Mcg Tablet, (Reported) Entered as Reported by: ANDERSON CARTER on 08/29/1854 Lorazepam (Lorazepam) 1 Mg Tablet, (Reported) Entered as Reported by: ANDERSON CARTER on 08/29/1854 Metolazone (Metolazone) 2.5 Mg Tablet, (Reported) Entered as Reported by: ANDERSON CARTER on 08/29/1854 Ondansetron (Ondansetron Odt) 4 Mg Tab.rapdis, 4 MG PO Q6H PRN for NAUSEA/VOMITING Prescribed by: KIMBERLY VITAL on 05/26/211920 Potassium Chloride (Klor-Con M20) 20 Meq Tab.er.prt, (Reported) Entered as Reported by: ANDERSON CARTER on 08/29/1854 Potassium Chloride (Potassium Chloride) 20 Meq Tablet.er, (Reported) Entered as Reported by: ANDERSON CARTER on 08/29/1854 Tamsulosin HCl (Flomax) 0.4 Mg Cap, (Reported) Entered as Reported by: ANDERSON CARTER on 08/29/1854 [Tamsulosin] , (Reported) Entered as Reported by: ANDERSON CARTER on 08/29/1854 Review of Systems Constitutional: No chills, No fever EENTM: no symptoms reported Respiratory: no symptoms reported Cardiovascular: no symptoms reported Gastrointestinal: see HPI Genitourinary: see HPI Musculoskeletal: see HPI Skin: No rash Psychiatric/Neurological: Denies Headache Past Fxelvfn-Ljvirm-Dwqqtc Hx Patient Social History Tobacco Use?: No Use of E-Cig and/or Vaping dev: No Substance use?: No Alcohol Use?: No Pt feels they are or have been: Unable to obtain Immunizations Up To Date Tetanus Booster (TDap): Unknown First/Initial COVID19 Vaccinat: UNKNOWN DATE Second COVID19 Vaccination Jelani: UNKNOWN DATE Seasonal Allergies Seasonal Allergies: No Past Medical History Surgery/Hospitalization HX: End Stage Renal disease on hemodialysis Surgeries: Yes (Left nephrectomy, left knee surgery) Arteriovenous Shunt, Dialysis Respiratory: No Cardiac: No Neurological: No Seizure Disorder Genitourinary: Yes Renal Failure, Dialysis Gastrointestinal: No Musculoskeletal: No Endocrine: No HEENT: Yes Hearing Impairment: Bilateral Hearing Aide Cancer: No Psychosocial: No Integumentary: Yes Psoriasis Blood Disorders: No Physical Exam Vital Signs Vital Signs - First Documented 03/09/22 09:16 Temp 36.4 Pulse 95 Resp 16 B/P (MAP) 127/87 (100) Pulse Ox 98 Capillary Refill : Height, Weight, BMI Height: 5'5.00" Weight: 273lbs. oz. 123.668298sf; BMI Method:Stated General Appearance: No Apparent Distress, Obese HEENT: Moist Mucous Membranes Neck: Full Range of Motion, Normal Inspection, Non Tender, Supple Cardiovascular: Regular Rate, Rhythm, Normal Peripheral Pulses Respiratory: Chest Non Tender, Lungs Clear, Normal Breath Sounds Gastrointestinal: Normal Bowel Sounds, No Pulsatile Mass, Non Tender, Soft Back: No CVA Tenderness, No Vertebral Tenderness, Other (tender to palpation right lower back/flank area) Extremity: Normal Capillary Refill, Pedal Edema (1+ bilateral pitting edema) Neurologic/Psychiatric: Alert, Oriented x3, corporate pilot II-XII Norm as Tested Skin: Warm/Dry Progress/Results/Core Measures Results/Orders Lab Results Laboratory Tests Test 03/09/22 09:17 Range/Units White Blood Count 9.3 4.3-11.0 10^3/uL Red Blood Count 3.27 L 3.80-5.11 10^6/uL Hemoglobin 10.6 L 11.5-16.0 g/dL Hematocrit 30 L 35-52 % Mean Corpuscular Volume 93 80-99 fL Mean Corpuscular Hemoglobin 32 25-34 pg Mean Corpuscular Hemoglobin Concent 35 32-36 g/dL Red Cell Distribution Width 13.7 10.0-14.5 % Platelet Count 198 130-400 10^3/uL Mean Platelet Volume 10.3 9.0-12.2 fL Immature Granulocyte % (Auto) 0 % Neutrophils (%) (Auto) 82 H 42-75 % Lymphocytes (%) (Auto) 11 L 12-44 % Monocytes (%) (Auto) 5 0-12 % Eosinophils (%) (Auto) 1 0-10 % Basophils (%) (Auto) 0 0-10 % Neutrophils # (Auto) 7.6 1.8-7.8 10^3/uL Lymphocytes # (Auto) 1.1 1.0-4.0 10^3/uL Monocytes # (Auto) 0.5 0.0-1.0 10^3/uL Eosinophils # (Auto) 0.1 0.0-0.3 10^3/uL Basophils # (Auto) 0.0 0.0-0.1 10^3/uL Immature Granulocyte # (Auto) 0.0 0.0-0.1 10^3/uL Sodium Level 134 L 135-145 MMOL/L Potassium Level 4.2 3.6-5.0 MMOL/L Chloride Level 88 L 98-107 MMOL/L Carbon Dioxide Level 25 21-32 MMOL/L Anion Gap 21 H 5-14 MMOL/L Blood Urea Nitrogen 66 H 7-18 MG/DL Creatinine 8.41 H 0.60-1.30 MG/DL Estimat Glomerular Filtration Rate 5 BUN/Creatinine Ratio 8 Glucose Level 154 H 70-105 MG/DL Calcium Level 9.3 8.5-10.1 MG/DL Corrected Calcium 9.5 8.5-10.1 MG/DL Magnesium Level 1.8 1.6-2.4 MG/DL Total Bilirubin 1.5 H 0.1-1.0 MG/DL Aspartate Amino Transf (AST/SGOT) 29 5-34 U/L Alanine Aminotransferase (ALT/SGPT) 25 0-55 U/L Alkaline Phosphatase 110 40-136 U/L Total Protein 7.5 6.4-8.2 GM/DL Albumin 3.8 3.2-4.5 GM/DL Lipase 50 8-78 U/L My Orders Orders - KIMBERLY VITAL MD Comprehensive Metabolic Panel (03/09/22 09:20) Lipase (03/09/22 09:20) Ed Iv/Invasive Line Start (03/09/22 09:20) Cbc With Automated Diff (03/09/22 09:20) Ct Abdomen/Pelvis Wo (03/09/22 09:20) Magnesium (03/09/22 09:20) Ns (Ivpb) (Sodium Chloride 0.9%) (03/09/22 09:20) Acetaminophen Tablet/Caplet (Tylenol T (03/09/22 09:20) Vital Signs/I&O 03/09/22 03/09/22 09:16 10:37 Temp 36.4 36.4 Pulse 95 84 Resp 16 16 B/P (MAP) 127/87 (100) 124/78 Pulse Ox 98 98 Blood Pressure Mean: 93 Progress Progress Note #1: Progress Note Reviewed patient's prior medical records on the electronic medical chart. Order basic labs and urine as well as a CT scan of the abdomen and pelvis without IV contrast. Evaluate for possible kidney stone versus pyelonephritis versus colitis versus diverticulitis versus enteritis. Give normal saline 250mL bolus IV fluid for hydration. Progress Note #2: Progress Note CBC shows chronic anemia with a hemoglobin of 10.6. She does not have an elevated white blood cell count at 9.3. Her chemistry panel shows signs of renal failure with elevated BUN and creatinine however her electrolytes overall appear stable without acute significant abnormality. Specifically her calcium, magnesium, potassium looked okay. Reassured patient and counseled on follow-up and return precautions. Treat symptomatically for muscle strain of the lumbar spine. Encouraged to get dialysis set back up with her clinic since she missed this morning. Diagnostic Imaging Diagonstic Imaging: CT Plain Films/CT/US/NM/MRI: abdomen, pelvis Comments [facility] [place], [place] NAME: GILBERTO SWENSON [facility] REC#: [id number] PT STATUS: DEP ER : 1965 PHYSICIAN: KIMBERLY VITAL MD ADMIT DATE: 03/09/22/ER FS Signed Date of Exam:03/09/22 CT ABDOMEN/PELVIS WO PROCEDURE: CT abdomen and pelvis without contrast. TECHNIQUE: Multiple contiguous axial images were obtained through the abdomen and pelvis without the use of intravenous contrast. Auto Exposure Controls were utilized during the CT exam to meet ALARA standards for radiation dose reduction. INDICATION: Right flank pain, history left nephrectomy. COMPARISON: 03/26/2022 FINDINGS: Multiple gallstones redemonstrated but no secondary features of cholecystitis. There is chronic cortical thinning and atrophy of the solitary right kidney with unchanged nonobstructing renal calculi. No hydroureteronephrosis. No radiopaque ureteral stone. Bladder unremarkable. Uterus and adnexa nonacute. There is no appendicitis or diverticulitis. The left nephrectomy bed unremarkable. Adrenal glands present bilaterally. No biliary dilatation. Pancreas unremarkable. Spleen is negative. The aorta is nonaneurysmal. 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 IMPRESSION: 1. Severe chronic degenerative change stable. No acute bony abnormality. 2. Atrophic solitary right kidney with unchanged nonobstructing stones. 3. Cholelithiasis with no findings to suggest acute cholecystitis. 4. No bowel, biliary or urinary tract obstruction, ascites or fluid collection. Dictated by: Dictated on workstation # [id number] Dict: 03/09/22 0959 Trans: 03/09/22 1038 [id number] Interpreted by: ROBBIE STYLES Electronically signed by: ROBBIE STYLES 03/09/22 1038 Reviewed: Reviewed by Me Departure Impression Primary Impression: Back strain Qualified Codes: S39.012A - Strain of muscle, fascia and tendon of lower back, initial encounter Disposition: HOME, SELF-CARE Condition: Stable Departure-Patient Inst. Decision time for Depature: 10:24 Referrals: ELADIA LEE MD (PCP) Primary Care Physician Patient Instructions: Back Muscle Strain (DC) Add. Discharge Instructions: Try to get Dialysis rescheduled and follow up with clinic for continued concerns. Labs appear stable today and not showing elevated White Blood Cells or signs of overwhelming infection. The Ciprofloxacin you are taking will treat for a urine infection but it can make your stools softer or looser. All discharge instructions reviewed with patient and/or family. Voiced understanding. KIMBERLY VITAL MD Mar 09, 2022 13:00
== END 2022-03-09 10:38 | disposition home or self-care (01) ==
LOC: EDUNIT# 08:52 → ER FS 08:55
DX: S39.012A Strain of muscle, fascia and tendon of lower back, initial encounter (principal); D63.1 Anemia in chronic kidney disease; E66.9 Obesity, unspecified; N18.6 End stage renal disease; R94.4 Abnormal results of kidney function studies; R79.89 Other specified abnormal findings of blood chemistry; Z99.2 Dependence on renal dialysis; W19.XXXA Unspecified fall, initial encounter
CPT/HCPCS: 36415; 74176; 80053; 83690; 83735; 85025

== ENCOUNTER 2022-08-09 16:19 | Emergency (ER) | payer MEDICARE, MEDICAID ==
[2022-08-09 16:50] LABS: BILIRUBIN,URINE NEGATIVE (NEGATIVE); CLARITY,URINE CLEAR; COLOR,URINE YELLOW; GLUCOSE, URINE (UA) NEGATIVE (NEGATIVE); KETONES,URINE NEGATIVE (NEGATIVE); LEUKOCYTE ESTERASE ,URINE NEGATIVE (NEGATIVE); NITRITE,URINE NEGATIVE (NEGATIVE); PH,URINE 8.5 (5-9); PROTEIN,URINE 1+ (NEGATIVE)
[2022-08-09 16:52] LABS: BACTERIA,URINE MODERATE /HPF; SQUAMOUS EPITHELIAL CELL,UR >50 /HPF
--- NOTE | 2022-08-09 17:06 | ED Cough/URI ---
General Chief Complaint: Cough/Cold/Flu Symptoms Stated Complaint: COUGH Source: patient History of Present Illness Date Seen by Provider: Aug 09, 2022 Time Seen by Provider: 16:24 Initial Comments 57-year-old female presenting with complaints of cough for over 6 weeks but that she felt like it might be worse in the last few days. She also was concerned b ecause she had made more urine today than usual. She has had recurrent sepsis in the past so she thought she had an infection and sepsis and came to the emergency department this evening. She is a dialysis patient and still makes urine but usually not very much. She had some chills but denies fever. She is due for dialysis tomorrow. She has occasionally had a productive cough but mostly has been dry. She reports that she called the clinic and they told her she could not be seen until August. Timing/Duration: getting worse (In the last few days cough is gotten worse but been present for over 6 weeks) Severity/Quality: moderate, dry cough (Mostly dry cough but occasionally productive) Prior Episodes/Possible Cause: occasional episodes Modifying Factors: Worse With Coughing Associated Symptoms: cough, shortness of breath Allergies and Home Medications Allergies Coded Allergies: Sulfa (Sulfonamide Antibiotics) (Verified Allergy, Unknown, 08/28/18) vancomycin (Verified Allergy, Unknown, 08/28/18) Patient Home Medication List Home Medication List Reviewed: Yes Calcitriol (Calcitriol) 0.25 Mcg Capsule, (Reported) Entered as Reported by: ANDERSON CARTER on 08/29/1854 Calcium Acetate (Calcium Acetate) 667 Mg Capsule, (Reported) Entered as Reported by: ANDERSON CARTER on 08/29/1854 Cephalexin (Cephalexin) 500 Mg Tablet, 500 MG PO TID Prescribed by: BEL DHALIWAL on 10/28/19 0556 Cetirizine HCl (Cetirizine HCl) 10 Mg Tablet, (Reported) Entered as Reported by: ANDERSON CARTER on 08/29/1854 Citalopram Hydrobromide (Citalopram HBr) 10 Mg Tablet, (Reported) Entered as Reported by: ANDERSON CARTER on 08/29/1854 Hydrocodone/Acetaminophen (Hydrocodone-Acetamin 5-325 mg) 1 Each Tablet, 1 EACH PO Q4H Prescribed by: BEL DHALIWAL on 10/28/19 0512 Levothyroxine Sodium (Levothyroxine Sodium) 200 Mcg Tablet, (Reported) Entered as Reported by: ANDERSON CARTER on 08/29/1854 Lorazepam (Lorazepam) 1 Mg Tablet, (Reported) Entered as Reported by: ANDERSON CARTER on 08/29/1854 Metolazone (Metolazone) 2.5 Mg Tablet, (Reported) Entered as Reported by: ANDERSON CARTER on 08/29/1854 Ondansetron (Ondansetron Odt) 4 Mg Tab.rapdis, 4 MG PO Q6H PRN for NAUSEA/VOMITING Prescribed by: KIMBERLY VITAL on 05/26/211920 Potassium Chloride (Klor-Con M20) 20 Meq Tab.er.prt, (Reported) Entered as Reported by: ANDERSON CARTER on 08/29/1854 Potassium Chloride (Potassium Chloride) 20 Meq Tablet.er, (Reported) Entered as Reported by: ANDERSON CARTER on 08/29/1854 Tamsulosin HCl (Flomax) 0.4 Mg Cap, (Reported) Entered as Reported by: ANDERSON CARTER on 08/29/1854 [Tamsulosin] , (Reported) Entered as Reported by: ANDERSON CARTER on 08/29/1854 Review of Systems Review of Systems Constitutional: chills; No fever; malaise EENTM: no symptoms reported Respiratory: see HPI, cough Cardiovascular: no symptoms reported Gastrointestinal: diarrhea (Had some diarrhea overnight but none during the day) Genitourinary: see HPI Musculoskeletal: no symptoms reported Skin: No change in color Psychiatric/Neurological: Anxiety Past Fqfpfsd-Selzwq-Qikvmh Hx Patient Social History Tobacco Use?: No Use of E-Cig and/or Vaping dev: No Substance use?: No Immunizations Up To Date Tetanus Booster (TDap): Unknown First/Initial COVID19 Vaccinat: UNKNOWN DATE Second COVID19 Vaccination Jelani: UNKNOWN DATE Seasonal Allergies Seasonal Allergies: No Past Medical History Surgery/Hospitalization HX: End Stage Renal disease on hemodialysis Surgeries: Yes (Left nephrectomy, left knee surgery) Arteriovenous Shunt, Dialysis Respiratory: No Cardiac: No Neurological: No Seizure Disorder Genitourinary: Yes Renal Failure, Dialysis Gastrointestinal: No Musculoskeletal: No Endocrine: No HEENT: Yes Hearing Impairment: Bilateral Hearing Aide Cancer: No Psychosocial: No Integumentary: Yes Psoriasis Blood Disorders: No Physical Exam Vital Signs - First Documented 08/09/22 16:30 Temp 37.0 Pulse 104 Resp 16 B/P (MAP) 121/88 (99) Pulse Ox 98 O2 Delivery Room Air Capillary Refill : Height: 5'5.00" Weight: 273lbs. oz. 123.499793yw; BMI Method:Stated General Appearance: no apparent distress, obese, other (Chronically ill) Respiratory: chest non-tender, lungs clear, normal breath sounds, no respiratory distress, no accessory muscle use Cardiovascular: normal peripheral pulses, regular rate, rhythm Gastrointestinal: normal bowel sounds, non tender, soft, no pulsatile mass Extremities: normal range of motion, normal capillary refill Neurologic/Psychiatric: alert, oriented x 3 Skin: normal color, warm/dry Progress/Results/Core Measures Suspected Sepsis SIRS Temperature: Pulse: Respiratory Rate: Blood Pressure / Mean: Results/Orders Lab Results Laboratory Tests Test 08/09/22 16:30 Range/Units Urine Color YELLOW Urine Clarity CLEAR Urine pH 8.5 5-9 Urine Specific Nancy 1.015 L 1.016-1.022 Urine Protein 1+ H NEGATIVE Urine Glucose (UA) NEGATIVE NEGATIVE Urine Ketones NEGATIVE NEGATIVE Urine Nitrite NEGATIVE NEGATIVE Urine Bilirubin NEGATIVE NEGATIVE Urine Urobilinogen 0.2 < = 1.0 MG/DL Urine Leukocyte Esterase NEGATIVE NEGATIVE Urine RBC (Auto) NEGATIVE NEGATIVE Urine RBC 5-10 H /HPF Urine WBC 10-25 H /HPF Urine Squamous Epithelial Cells >50 H /HPF Urine Crystals NONE /LPF Urine Bacteria MODERATE H /HPF Urine Casts NONE /LPF Urine Mucus NEGATIVE /LPF Urine Culture Indicated NO My Orders Orders - KIMBERLY VITAL MD Ua Culture If Indicated (08/09/22 16:46) Chest 1 View Ap/Pa Only (08/09/22 16:46) Dexamethasone Injection (Decadron Inje (08/09/22 18:14) Methylprednisolone Acetate Inj (Depo-Med (08/09/22 18:14) Vital Signs/I&O 08/09/22 08/09/22 16:30 18:31 Temp 37.0 37.0 Pulse 104 104 Resp 16 16 B/P (MAP) 121/88 (99) 121/88 Pulse Ox 98 98 O2 Delivery Room Air Room Air Capillary Refill : Progress Note #1: Progress Note Potential diagnosis of urinary tract infection, pneumonia, bronchitis, pulmonary vascular congestion, pleural effusion. Patient's vital signs were not showing fever, hypotension, hypoxia. Since her symptoms have been over 6 weeks for the cough will obtain a chest x-ray looking for signs of infiltrate or effusion or mass. She was able to provide a urine specimen so we will send that to check for signs of UTI. Progress Note #2: Progress Note On my review of her chest x-ray she did not have any acute infiltrate or effusion. Her urinalysis had over 50 epithelial cells with bacteria but did not have nitrites or leukocyte esterase to indicate a UTI. This appeared to be more contamination and did not reflex to culture. We will consider a steroid to help with the cough and encouraged her to follow- up with the clinic and her primary for continued concerns if not improving. She could also take Mucinex [id number] to help loosen up any congestion and cough. Use a humidifier at the bedside to help with cough and keep your throat and airways from drying out overnight. Progress Note #3: Progress Note I reviewed the radiologist report and they felt that she had findings for bronchitis with some inflammation in the peribronchial areas. I updated the patient and her family about the findings. Proceed with the plan for steroid shot to help with her cough. Counseled on symptomatic care with [id number] Mucinex and humidifier. Encouraged to follow-up with clinic for continued concerns. At this point there is no signs of pneumonia or bacterial infection in her lungs and her urine was not showing a UTI. There is no indication for her to have sepsis at this point. Diagnostic Imaging Diagonstic Imaging: Xray Plain Films/CT/US/NM/MRI: chest Comments NAME: GILBERTO SWENSON [facility] REC#: [id number] PT STATUS: REG ER : 1965 PHYSICIAN: KIMBERLY VITAL MD ADMIT DATE: 08/09/22/ER FS Draft Date of Exam:08/09/22 CHEST 1 VIEW AP/PA ONLY INDICATION: 57-year-old female with cough. COMPARISONS: CT chest 05/26/2021 and single view chest 07/05/2020. FINDINGS: Single view chest shows the cardiac contour to be upper limits of normal. There is slight prominence of the central lung markings with some peribronchial cuffing. Some minimal perihilar atelectatic type infiltrates are seen but no confluent consolidation. There is no effusion or pneumothorax. Soft tissues and bony thorax are unremarkable. IMPRESSION: Some central reactive airway changes as may be seen with bronchitis. Some minimal perihilar atelectatic infiltrates are seen but no confluent consolidation. There is no effusion or pneumothorax. Dictated on workstation # [id number] Dict: 08/09/22 1748 Trans: 08/09/22 1756 [id number] Interpreted by: BHANU OLIVEIRA MD Electronically signed by: Reviewed: Reviewed by Me Departure Impression Primary Impression: Bronchitis Additional Impression: Cough Qualified Codes: R05.3 - Chronic cough Disposition: 01 HOME, SELF-CARE Condition: Stable Departure-Patient Inst. Decision time for Depature: 18:03 Referrals: ELADIA LEE MD (PCP/Family) Primary Care Physician Patient Instructions: Bronchitis, Adult ED, Cough, Adult ED Add. Discharge Instructions: You can try taking Mucinex [id number] to help with cough and loosening congestion in your chest. Try using a humidifier at bedside to help with cough and your airway/throat getting dried out overnight. The steroid would help with inflammation from the bronchitis to help with cough. Follow-up with the clinic if you are having continued symptoms for reevaluation. Your chest x-ray did not show any pneumonia and your urinalysis did not show infection. All discharge instructions reviewed with patient and/or family. Voiced understanding. KIMBERLY VITAL MD Aug 09, 2022 17:05
--- NOTE | 2022-08-09 17:58 | Diagnostic Imaging Report ---
INDICATION: 57-year-old female with cough. COMPARISONS: CT chest 05/26/2021 and single view chest 07/05/2020. FINDINGS: Single view chest shows the cardiac contour to be upper limits of normal. There is slight prominence of the central lung markings with some peribronchial cuffing. Some minimal perihilar atelectatic type infiltrates are seen but no confluent consolidation. There is no effusion or pneumothorax. Soft tissues and bony thorax are unremarkable. IMPRESSION: Some central reactive airway changes as may be seen with bronchitis. Some minimal perihilar atelectatic infiltrates are seen but no confluent consolidation. There is no effusion or pneumothorax. Dictated by: Dictated on workstation # [id number]
[2022-08-09] MEDS ORDERED: methylPREDNISolone 80 MG/ML (DEPO MEDROL) VIAL IM STA (18:14)
[2022-08-09 18:31] VITALS: BP 121/88
== END 2022-08-09 18:31 | disposition home or self-care (01) ==
LOC: EDUNIT# 16:19 → ER FS 16:22
DX: J40 Bronchitis, not specified as acute or chronic (principal); N18.6 End stage renal disease; Z99.2 Dependence on renal dialysis
CPT/HCPCS: 71045; 81000